=== PATIENT | female | born 1935 | race Hispanic/Latino ===

== ENCOUNTER 2017-11-11 16:20 | Emergency (ER) | payer MEDICARE, OTHER ==
[~2017-11-11] VITALS: Ht 149.9 cm; Wt 62.6 kg
[~2017-11-11 16:20] MED LIST: ACTONEL5 MG PO; ALENDRONATE SOD70 MG PO; AMLODIPINE BESYL5 MG PO; ASPIR 8181 MG PO; ASPIRIN EC81 MG PO; BACLOFEN10 MG PO; BACTRIM DS TAB1 EACH PO; CALCIUM + VITA1 EACH PO; CIMETIDINE400 MG PO; CRESTOR10 MG PO; GLIMEPIRIDE4 MG PO; HYDROCHLOROTHIA25 MG PO; LORATADINE10 MG PO; LOSARTAN POTAS100 MG PO; METFORMIN HCL500 MG PO; METFORMIN PO; METOCLOPRAMIDE10 MG PO; NORVASC10 MG PO; OMEPRAZOLE20 M1 PO; OMEPRAZOLE40 MG PO; TOVIAZ8 MG PO; TRANDATE100 MG PO; TYLENOL # 31 EA PO; ULTRAM 50MG50 MG PO; VITAMIN C500 MG PO
== END 2017-11-11 16:49 | disposition left against medical advice (07) ==
LOC: ER 16:20
DX: S60.511A Abrasion of right hand, initial encounter (principal); S50.811A Abrasion of right forearm, initial encounter; W55.03XA Scratched by cat, initial encounter

== ENCOUNTER 2020-04-22 09:35 | Inpatient (IN) | payer MEDICARE, OTHER ==
[~2020-04-22] VITALS: Ht 149.9 cm; Wt 62.6 kg
--- NOTE | 2020-04-22 09:48 | Emergency Department Note ---
History of Present Illnes History of Present Illness History of Present Illness This is a 85 year old female 4 day h/o of intractable n/v with redness to L leg. Seen by Dr Link's office x 2 and given IM shot of abx. Historian: Patient Arrival Mode: Car History limited by: language barrier Onset (how long ago): week(s) (2) Location: L LE Radiation: Reports extremity Severity: moderate Onset quality: gradual Duration (how long): week(s) (2) Timing of current episode: constant Progression: worsening Chronicity: new Context: Reports recent illness Exacerbating factors: movement Associated symptoms: Reports nausea/vomiting, Reports weakness; Denies fever/chills Treatments prior to arrival: none Previous service: re-evaluation Past Medical/Family History Physician Review I have reviewed the patient's past medical and family history. Any updates have been documented here. Past Medical History Recent Fever: No Clinical Suspicion of Infectio: Yes New/Unexplained Change in Ment: No Past Medical History: Diabetes Other Medical History: acid reflux, arthritis, high cholesterol LYMPHOM LEFT BREAST CA HIATAL HERNIA Other Surgery: hernia LEFT shoulder RIGHT HIP LEFT HIP Social History Smoking Cessation: Never Smoker Alcohol Use: None Any Illegal Drug Use: No Other Last Tetanus: unknown Review of Systems Review of Systems Constitutional: Reports fever EENTM: Reports no symptoms Cardiovascular: Reports no symptoms Respiratory: Reports no symptoms Gastrointestinal: Reports nausea, Reports vomiting Genitourinary: Reports no symptoms Musculoskeletal: Reports no symptoms Integumentary: Reports rash Neurological: Reports no symptoms Psychological: Reports no symptoms Endocrine: Reports no symptoms Hematological/Lymphatic: Reports no symptoms Physical Exam Related Data Allergies: Coded Allergies: Insulins (Verified Allergy, Unknown, 04/22/20) none per pt and family latex (Verified Allergy, Unknown, 04/22/20) losartan (Verified Allergy, Unknown, 04/22/20) simvastatin (Verified Allergy, Unknown, 04/22/20) Uncoded Allergies: NATURAL RUBBER (Allergy, Mild, RASH, 01/13/13) Triage Vital Signs Vital Signs Date Time Temp Pulse Resp B/P (MAP) Pulse Ox O2 Delivery O2 Flow Rate FiO2 04/22/20 09:55 99.0 88 16 152/68 99 04/22/20 11:35 Room Air Vital signs reviewed: Yes Physical Exam CONSTITUTIONAL Constitutional: Present well-developed, Present well-nourished HENT HENT: Present normocephalic, Present atraumatic, Present oropharynx clear/moist, Present nose normal HENT L/R: Present left ext ear normal, Present right ext ear normal EYES Eyes: Reports PERRL, Reports conjunctivae normal NECK Neck: Present ROM normal PULMONARY Pulmonary: Present effort normal, Present breath sounds normal CARDIOVASCULAR Cardiovascular: Present regular rhythm, Present heart sounds normal, Present capillary refill normal, Present normal rate GASTROINTESTINAL Abdominal: Present soft, Present nontender, Present bowel sounds normal GENITOURINARY Genitourinary: Present exam deferred SKIN Skin: Present rash (L LE) MUSCULOSKELETAL Musculoskeletal: Present ROM normal NEUROLOGICAL Neurological: Present alert, Present oriented x 3, Present no gross motor or sensory deficits PSYCHOLOGICAL Psychological: Present mood/affect normal, Present judgement normal Results Laboratory Lab results reviewed: Yes Laboratory comments Laboratory Tests Test 04/22/20 11:15 White Blood Count 11.09 x10e3/uL (4.8-10.8) Red Blood Count 3.72 x10e6/uL (3.6-5.1) Hemoglobin 10.6 g/dL (12.0-16.0) Hematocrit 30.5 % (34.2-44.1) Mean Corpuscular Volume 82.0 fL (81-99) Mean Corpuscular Hemoglobin 28.5 pg (28-32) Mean Corpuscular Hemoglobin Concent 34.8 g/dL (31-35) Red Cell Distribution Width 12.6 % (11.7-14.4) Platelet Count 140 x10e3/uL (140-360) Neutrophils (%) (Auto) 81.6 % (38.7-80.0) Lymphocytes (%) (Auto) 9.3 % (18.0-39.1) Monocytes (%) (Auto) 8.3 % (4.4-11.3) Eosinophils (%) (Auto) 0.1 % (0.0-6.0) Basophils (%) (Auto) 0.1 % (0.0-1.0) Neutrophils # (Auto) 9.1 (2.1-6.9) Lymphocytes # (Auto) 1.0 (1.0-3.2) Monocytes # (Auto) 0.9 (0.2-0.8) Eosinophils # (Auto) 0.0 (0.0-0.4) Basophils # (Auto) 0.0 (0.0-0.1) Absolute Immature Granulocyte (auto 0.07 x10e3/uL (0-0.1) Sodium Level 113 mmol/L (136-145) Potassium Level 4.5 mmol/L (3.5-5.1) Chloride Level 81 mmol/L (98-107) Carbon Dioxide Level 21 mmol/L (22-29) Anion Gap 15.5 mmol/L (8-16) Blood Urea Nitrogen 18 mg/dL (7-26) Creatinine 0.93 mg/dL (0.57-1.11) Estimat Glomerular Filtration Rate 57 ML/MIN (60-) BUN/Creatinine Ratio 19 (6-25) Glucose Level 186 mg/dL (74-118) Calcium Level 8.8 mg/dL (8.4-10.2) Total Bilirubin 0.6 mg/dL (0.2-1.2) Aspartate Amino Transf (AST/SGOT) 35 IU/L (5-34) Alanine Aminotransferase (ALT/SGPT) 20 IU/L (0-55) Alkaline Phosphatase 64 IU/L (40-150) Creatine Kinase 331 IU/L (29-168) Creatine Kinase MB 6.50 ng/mL (0-5.0) Troponin I 0.001 ng/mL (0-0.300) Total Protein 6.5 g/dL (6.5-8.1) Albumin 3.5 g/dL (3.5-5.0) Globulin 3.0 g/dL (2.3-3.5) Albumin/Globulin Ratio 1.2 (0.8-2.0) Imaging Imaging results reviewed: Yes Impressions Venous Duplex L LE : neg Procedures 12 Lead ECG Interpretation ECG Interpretation : ECG: ECG 1 Ground Wood Supervisor: Interpreted by ED physician Date: Apr 22, 2020 Time: 11:37 Prior ECG tracings: reviewed Rhythm: sinus rhythm Rate: normal BPM: 88 QRS axis: normal ST segments normal: Yes T waves normal: Yes Clinical Impression: normal ECG Assessment & Plan Medical Decision Making MDM Diff Dx : DVT, Cellulitis, diabetic ulcer, COVID-19 infection, osteomyelitis. Plan to admit to the service of Dr Jim Rios Assessment & Plan Final Impression: (1) Cellulitis of left leg (2) Intractable nausea and vomiting (3) Hyponatremia Depart Disposition: ADMITTED Home Meds Reported Medications Donepezil Hcl (ARICEPT) 5 Mg Tablet, 5 MG PO DAILY, #30 TAB 04/22/20 Glimepiride (GLIMEPIRIDE) 2 Mg Tablet, 1 MG PO DAILY, TAB 04/22/20 Rosuvastatin Calcium (CRESTOR) 10 Mg Tab, 10 MG PO DAILY THERAPEUTICALLY SUBSTITUTED WITH SIMVASTATIN 40MG 04/22/20 Baclofen (BACLOFEN) 10 Mg Tablet, 10 MG PO DAILY, TAB 04/22/20 Losartan Potassium (LOSARTAN POTASSIUM) 100 Mg Tablet, 100 MG PO DAILY, TAB 04/22/20 Loratadine (LORATADINE) 10 Mg Tablet, 10 MG PO DAILY, #30 TAB 04/22/20 Omeprazole (OMEPRAZOLE) 40 Mg Capsule.dr, 40 MG PO BID 04/22/20 Alendronate Sodium (ALENDRONATE SODIUM) 70 Mg Tablet, 70 MG PO UD once per week 04/22/20 Magnesium Chloride (SLOW-MAG) 64 Mg Tabsr, 64 MG PO DAILY, #30 TAB THERAPEUTICALLY SUBSTITUTED WITH MAG-OX 400MG 04/22/20 Aspirin (ASPIRIN) 81 Mg Tab.chew, 2 TAB PO HS 04/22/20 Fesoterodine Fumarate (TOVIAZ) 8 Mg Tab.er.24h, 1 TAB PO HS 04/22/20 Amlodipine Besylate (AMLODIPINE BESYLATE) 5 Mg Tablet, 5 MG PO DAILY, #30 TAB 04/22/20 Metoclopramide Hcl (METOCLOPRAMIDE HCL) 5 Mg/5 Ml Solution, 10 MG PO ACS, ML 04/22/20 Metformin Hcl (METFORMIN HCL) 500 Mg Tablet, 500 MG PO DAILY, #60 TAB 04/22/20 Discontinued Reported Medications Fesoterodine Fumarate (TOVIAZ) 8 Mg Tab.er.24h, 8 MG PO DAILY 05/15/16 Metformin Hcl (METFORMIN HCL) 500 Mg Tablet, 500 MG PO BID, #60 TAB 05/15/16 Aspirin (ASPIR 81) 81 Mg Tablet.dr, 81 MG PO DAILY 05/15/16 Amlodipine Besylate (AMLODIPINE BESYLATE) 5 Mg Tablet, 5 MG PO DAILY, #30 TAB 05/15/16 Omeprazole (OMEPRAZOLE) 40 Mg Capsule.dr, 20 MG PO DAILY 05/15/16 Baclofen (BACLOFEN) 10 Mg Tablet, 10 MG PO DAILY, #90 TAB 06/12/14 Metoclopramide Hcl (METOCLOPRAMIDE HCL) 10 Mg Tablet, 10 MG PO BID, TAB 06/04/14 Calcium Carbonate/Vitamin D3 (CALCIUM + VITAMIN D TABLET) 1 Each Tablet, 1200 MG PO DAILY 01/13/13 Ascorbic Acid (VITAMIN C) 500 Mg Capsule.er, 500 MG PO DAILY 01/13/13 Rosuvastatin Calcium (CRESTOR) 10 Mg Tab, 10 MG PO DAILY 01/13/13 Losartan Potassium (LOSARTAN POTASSIUM) 100 Mg Tablet, 100 MG PO DAILY 01/13/13 Loratadine (LORATADINE) 10 Mg Tablet, 10 MG PO DAILY 01/13/13 PATIENCE TERRELL DO Apr 22, 2020 09:48
[2020-04-22] MEDS ORDERED: VANCOMYCIN 500MG/NS 0.9% 100ML 100 ML IV STA (09:50)
--- OUTSIDE RECORDS SUMMARY | 2020-04-22 10:13 | XMS REPORT | Continuity of Care Document ---
Author Author [facility] t Organization [facility] Address [address] [place] [address] Phone Unavailable Care Team Providers Care Principal Scientist Name Role Phone JOSEPH ARAUJO, Momo DENNIS PCP Payers Payer Name Policy Type Policy Number Effective Date Expiration Date Finding Something 3 [id number] 2015 00:00 :00 [facility] Medicare A & B [id number] 2012 00:00:00 [facility] [id number] [facility] Problems This patient has no known problems. Allergies, Adverse Reactions, Alerts Allergy Name Allergy Type Status Severity Reaction(s) Onset Date Inacti ve Date Treating Clinician Comments Source Simvastatin Allergy to Substance Active 2014-06-09 00:00:00 [facility] Losartan Allergy to Substance Active 2014-06-09 00:00:00 [facility] Alendronate sodium Allergy to Substance Active 2014-06-09 0 0:00:00 [facility] Latex Allergy to Substance Active 2014-06-09 00:00:00 [facility] NATURAL RUBBER Allergy to Substance Active Mild RASH 2013-01-13 00:00 :00 [facility] Medications Ordered Medication Name Filled Medication Name Start Date Stop Da te Current Medication? Ordering Clinician Indication Dosage Frequency Signature (SIG) Comments Components Source Amlodipine Besylate 5 Mg Tablet Amlodipine Besylate 5 Mg Tablet Yes 5 Daily [facility] Ascorbic Acid (Vitamin C) 500 Mg Capsule.er Ascorbic A sly (Vitamin C) 500 Mg Capsule.er Yes 500 Daily [facility] Aspirin (Aspir 81) 81 Mg Tablet. Aspirin (Aspir 81) 81 Mg Tablet. Yes 81 Daily [facility] Baclofen 10 Mg Tablet Baclofen 10 Mg Tablet Yes 10 Daily [facility] Calcium Carbonate/Vitamin D3 (Calcium + Vitamin D Tabl et) 1 Each Tablet Calcium Carbonate/Vitamin D3 (Calcium + Vitamin D Tablet) 1 Each Tablet Yes 1200 Daily [facility] Fesoterodine Fumarate (Toviaz) 8 Mg Tab.er.24h Fesoter odine Fumarate (Toviaz) 8 Mg Tab.er.24h Yes [address] [facility] Loratadine 10 Mg Tablet Loratadine 10 Mg Tablet Yes 10 Daily [facility] Losartan Potassium 100 Mg Tablet Losartan Potassium 100 Mg Tablet Yes 100 Daily [facility] Metformin Hcl 500 Mg Tablet Metformin Hcl 500 Mg Tablet Yes 500 Twice A Day [facility] Metoclopramide Hcl 10 Mg Tablet Metoclopramide Hcl 10 Mg Tablet Yes 10 Twice A Day [facility] Omeprazole 40 Mg Capsule. Omeprazole 40 Mg Capsule. Yes 20 Daily [facility] Rosuvastatin Calcium (Crestor) 10 Mg Tab Rosuvastatin Calcium (Crestor) 10 Mg Tab Yes 10 Daily [facility] Alendronate Sodium 70 Mg Tablet, 70 Mg Oral Alendronat e Sodium 70 Mg Tablet, 70 Mg Oral 2016-05-15 00:00:00 No 70 Sunday [facility] Cimetidine 400 Mg Tablet, 400 Mg Oral Cimetidine 400 Mg Tablet, 400 Mg Oral 2016-05-15 00:00:00 No 400 Twice A Day [facility] Fesoterodine Fumarate (Toviaz) 8 Mg Tab.er.24h, 8 Mg O ral Fesoterodine Fumarate (Toviaz) 8 Mg Tab.er.24h, 8 Mg Oral 2016-05-15 00:00:00 No 8 Bedtime [facility] Glimepiride 4 Mg Tablet, 4 Mg Oral Glimepiride 4 Mg Tablet, 4 Mg Oral 2016-05-15 00:00:00 No 4 Daily [facility] Metformin , 500 Mg Oral Metformin , 500 Mg Oral 2016-05-15 00:00 :00 No 500 Twice A Day [facility] Sulfamethoxazole/Trimethoprim (Bactrim Ds Tablet) 1 Ea ch Tablet, 1 Tab Oral Sulfamethoxazole/Trimethoprim (Bactrim Ds Tablet) 1 Each Tablet, 1 Tab Oral 2016-05-15 00:00:00 No 1 Twice A Day [facility] Aspirin (Aspirin Ec) 81 Mg Tablet., 81 Mg Oral Aspir in (Aspirin Ec) 81 Mg Tablet.dr, 81 Mg Oral 2013-08-08 00:00:00 No 81 Da margaret [facility] Hydrochlorothiazide 25 Mg Tablet, 25 Mg Oral Hydrochlo rothiazide 25 Mg Tablet, 25 Mg Oral 2013-08-08 00:00:00 No 25 Daily [facility] Risedronate Sodium (Actonel) 5 Mg Tablet, 5 Mg Oral Ri sedronate Sodium (Actonel) 5 Mg Tablet, 5 Mg Oral 2013-08-08 00:00:00 No 5 D aily [facility] Tramadol Hcl (Ultram 50MG*) 50 Mg Tab, 50 Mg Oral Tram adol Hcl (Ultram 50MG*) 50 Mg Tab, 50 Mg Oral 2013-08-08 00:00:00 No 50 As Ne eded [facility] Procedures This patient has no known procedures. Encounters Start Date/Time End Date/Time Encounter Type Admission Type [facility] Care Department Encounter ID Source 2017-11-11 16:20:00 2017-11-11 16:49:00 Departed Emergency Room [facility] [id number] [facility] Results This patient has no known results.
[2020-04-22] MEDS ORDERED: ONDANSETRON HCL INJ 2MG/ML 2ML 2 MG/ML VIAL IV STA (10:30)
[2020-04-22 11:30] LABS: BASOPHILS % 0.1 % (0.0-1.0); EOSINOPHILS % 0.1 % (0.0-6.0); HEMATOCRIT 30.5 % (34.2-44.1); HEMOGLOBIN 10.6 g/dL (12.0-16.0); LYMPHOCYTES % 9.3 % (18.0-39.1); MEAN CORPUSCULAR HEMOGLOBIN 28.5 pg (28-32); MEAN CORPUSCULAR HGB CONC 34.8 g/dL (31-35); MONOCYTES # (AUTO) 0.9 (0.2-0.8); MONOCYTES % 8.3 % (4.4-11.3); NEUTROPHILS # (AUTO) 9.1 (2.1-6.9); NEUTROPHILS % 81.6 % (38.7-80.0); PLATELET COUNT 140 x10e3/uL (140-360); RED BLOOD COUNT 3.72 x10e6/uL (3.6-5.1); RED CELL DISTRIBUTION WIDTH 12.6 % (11.7-14.4)
[2020-04-22 11:47] LABS: ALBUMIN 3.5 g/dL (3.5-5.0); ALBUMIN/GLOBULIN RATIO 1.2 (0.8-2.0); ANION GAP 15.5 mmol/L (8-16); CALCIUM 8.8 mg/dL (8.4-10.2); CREATININE, SERUM 0.93 mg/dL (0.57-1.11); POTASSIUM 4.5 mmol/L (3.5-5.1)
[2020-04-22 11:53] LABS: CREATINE KINASE MB 6.5 ng/mL (0-5.0)
[2020-04-22] MEDS ORDERED: SODIUM CHLORIDE 0.9% 1000ML 1,000 ML IV SCH (12:00)
--- OUTSIDE RECORDS SUMMARY | 2020-04-22 12:20 | XMS REPORT | Continuity of Care Document ---
Author Author [facility] t Organization [facility] Address [address] [place] [address] Phone Unavailable Care Team Providers Care Pricer Bagger Name Role Phone JOSEPH ARAUJO, Momo DENNIS PCP Payers Payer Name Policy Type Policy Number Effective Date Expiration Date [employer] [id number] 2015 00:00 :00 [facility] Medicare A & B [id number] 2012 00:00:00 [facility] TM [id number] [facility] Problems This patient has no known problems. Allergies, Adverse Reactions, Alerts Allergy Name Allergy Type Status Severity Reaction(s) Onset Date Inacti ve Date Treating Clinician Comments Source Simvastatin Allergy to Substance Active 2014-06-09 00:00:00 [facility] Losartan Allergy to Substance Active 2014-06-09 00:00:00 [facility] Alendronate sodium Allergy to Substance Active 2014-06-09 0 0:00:00 [facility] Latex Allergy to Substance Active 2014-06-09 00:00:00 [facility] NATURAL RUBBER Allergy to Substance Active Mild RASH 2013-01-13 00:00 :00 [facility] Medications Ordered Medication Name Filled Medication Name Start Date Stop Da te Current Medication? Ordering Clinician Indication Dosage Frequency Signature (SIG) Comments Components Source Amlodipine Besylate 5 Mg Tablet Amlodipine Besylate 5 Mg Tablet Yes 5 Daily [facility] Ascorbic Acid (Vitamin C) 500 Mg Capsule.er Ascorbic A sly (Vitamin C) 500 Mg Capsule.er Yes 500 Daily [facility] Aspirin (Aspir 81) 81 Mg Tablet. Aspirin (Aspir 81) 81 Mg Tablet. Yes 81 Daily [facility] Baclofen 10 Mg Tablet Baclofen 10 Mg Tablet Yes 10 Daily [facility] Calcium Carbonate/Vitamin D3 (Calcium + Vitamin D Tabl et) 1 Each Tablet Calcium Carbonate/Vitamin D3 (Calcium + Vitamin D Tablet) 1 Each Tablet Yes 1200 Daily [facility] Fesoterodine Fumarate (Toviaz) 8 Mg Tab.er.24h Fesoter odine Fumarate (Toviaz) 8 Mg Tab.er.24h Yes 8 Daily [facility] Loratadine 10 Mg Tablet Loratadine 10 Mg Tablet Yes 10 Daily [facility] Losartan Potassium 100 Mg Tablet Losartan Potassium 100 Mg Tablet Yes 100 Daily [facility] Metformin Hcl 500 Mg Tablet Metformin Hcl 500 Mg Tablet Yes 500 Twice A Day [facility] Metoclopramide Hcl 10 Mg Tablet Metoclopramide Hcl 10 Mg Tablet Yes 10 Twice A Day [facility] Omeprazole 40 Mg Capsule. Omeprazole 40 Mg Capsule. Yes 20 Daily [facility] Rosuvastatin Calcium (Crestor) 10 Mg Tab Rosuvastatin Calcium (Crestor) 10 Mg Tab Yes 10 Daily [facility] Alendronate Sodium 70 Mg Tablet, 70 Mg Oral Alendronat e Sodium 70 Mg Tablet, 70 Mg Oral 2016-05-15 00:00:00 No 70 Sunday [facility] Cimetidine 400 Mg Tablet, 400 Mg Oral Cimetidine 400 Mg Tablet, 400 Mg Oral 2016-05-15 00:00:00 No 400 Twice A Day [facility] Fesoterodine Fumarate (Toviaz) 8 Mg Tab.er.24h, 8 Mg O ral Fesoterodine Fumarate (Toviaz) 8 Mg Tab.er.24h, 8 Mg Oral 2016-05-15 00:00:00 No 8 Bedtime [facility] Glimepiride 4 Mg Tablet, 4 Mg Oral Glimepiride 4 Mg Tablet, 4 Mg Oral 2016-05-15 00:00:00 No 4 Daily [facility] Metformin , 500 Mg Oral Metformin , 500 Mg Oral 2016-05-15 00:00 :00 No 500 Twice A Day [facility] Sulfamethoxazole/Trimethoprim (Bactrim Ds Tablet) 1 Ea ch Tablet, 1 Tab Oral Sulfamethoxazole/Trimethoprim (Bactrim Ds Tablet) 1 Each Tablet, 1 Tab Oral 2016-05-15 00:00:00 No 1 Twice A Day [facility] Aspirin (Aspirin Ec) 81 Mg Tablet., 81 Mg Oral Aspir in (Aspirin Ec) 81 Mg Tablet.dr, 81 Mg Oral 2013-08-08 00:00:00 No 81 Da margaret [facility] Hydrochlorothiazide 25 Mg Tablet, 25 Mg Oral Hydrochlo rothiazide 25 Mg Tablet, 25 Mg Oral 2013-08-08 00:00:00 No 25 Daily [facility] Risedronate Sodium (Actonel) 5 Mg Tablet, 5 Mg Oral Ri sedronate Sodium (Actonel) 5 Mg Tablet, 5 Mg Oral 2013-08-08 00:00:00 No 5 D aily [facility] Tramadol Hcl (Ultram 50MG*) 50 Mg Tab, 50 Mg Oral Tram adol Hcl (Ultram 50MG*) 50 Mg Tab, 50 Mg Oral 2013-08-08 00:00:00 No 50 As Ne eded [facility] Procedures This patient has no known procedures. Encounters Start Date/Time End Date/Time Encounter Type Admission Type [facility] Care Department Encounter ID Source 2017-11-11 16:20:00 2017-11-11 16:49:[address] [facility] [id number] [facility] Results This patient has no known results.
[2020-04-22] MEDS ORDERED: FUROSEMIDE INJ 10 MG/ML 4 ML VIAL IV ONE (15:45)
--- NOTE | 2020-04-22 16:40 | NUR ---
pt arrived to room 206 from ER via stretcher. pt's wheelchair at bedside. pt awake, alert, no complaints at this time.
[2020-04-22 16:45] VITALS: BP 156/70
--- NOTE | 2020-04-22 17:37 | NUR ---
informed by Lab pt's sodium is 116; informed Dr. Patton. no new orders received.
[2020-04-22 17:59] LABS: THYROID STIMULATING HORMONE 1.456 uIU/mL (0.350-4.940)
[2020-04-22 18:30] VITALS: BP 156/70
--- NOTE | 2020-04-22 19:00 | NUR ---
RECEIVED PATIENT IN BEDSIDE SHIFT REPORT. PATIENT RESTING IN BED AT THIS TIME. NO PAIN REPORTED OR NOTED. NO S&S OF DISTRESS NOTED. BED LOCKED IN LOWEST POSITION, SIDE RAILS UPX2, CALL LIGHT IN REACH. BED ALARM ACTIVE.
--- NOTE | 2020-04-22 19:15 | NUR ---
change of shift report given to PM nurse. Initial assessment and history completed along with medication reconciliation. passed along completion of admission to [facility].
--- NOTE | 2020-04-22 19:24 | Diagnostic Imaging Report ---
EXAMINATION: CHEST SINGLE (PORTABLE) COMPARISON: Report of chest x-ray performed 08/09/2013. Images are not available for comparison. INDICATION: ^SOB DISCUSSION: Frontal view of the chest obtained at 1854 hours. HEART AND MEDIASTINUM: The heart is top normal in size. A prominent pericardial fat pad may be present. There are calcifications of the aortic arch. LINES: None. LUNGS/PLEURA: The lungs are well inflated. Mild blunting of the left lateral costophrenic angle may be acute or chronic. Pulmonary vascular markings are normal. No interstitial edema. BONES AND SOFT TISSUES: Left shoulder prosthesis is in appropriate position without associated fracture. Healed fracture deformity of the proximal right humerus. There are healed right upper rib fractures. Calcification in the right breast measures 1.1 cm. IMPRESSION: Blunting of the left lateral costophrenic angle may be due to chronic pleural thickening or pleural effusion. Mild cardiomegaly versus prominent pericardial fat pad. No evidence of CHF or vascular congestion. Signed by: Dr. Erin Bynum MD on 04/22/2020 7:20 PM
[2020-04-22] MEDS: SODIUM CHLORIDE 1 GM TAB PO SCH (19:38)
[2020-04-22 20:00] VITALS: BP 152/80
--- NOTE | 2020-04-22 20:05 | Consultation ---
DATE OF CONSULTATION: Initial Nephrology Consultation Report REASON FOR CONSULTATION: Hyponatremia. HISTORY OF PRESENT ILLNESS: Ms. Benavidez is an 85-year-old female. She is really not able to give much of a history, so the history is obtained from the patient's medical records, nursing staff, and caregivers. The patient actually came in because of some less like cellulitis of the right leg. She was given some antibiotics. She also did have some nausea and vomiting, but then on laboratory testing, it was discovered that she was 113, she was kept in. PAST MEDICAL HISTORY: 1. The patient has some history of probable lymphoma. 2. Left breast cancer. PAST SURGICAL HISTORY: Some hip surgery. REVIEW OF SYSTEMS: As per HPI. PHYSICAL EXAMINATION: VITAL SIGNS: A complete set of vitals is not available to me at this time. GENERAL: The patient is very lethargic. HEENT: No increased JVD. CARDIOVASCULAR: Regular rhythm. LUNGS: Decreased breath sounds. ABDOMEN: Decreased bowel sounds. EXTREMITIES: The patient has some cellulitis of the right leg. LABORATORY RESULTS: Sodium 113, potassium 4.5, chloride 81, bicarbonate 21, BUN and creatinine 18 and 0.9 respectively. Hemoglobin 10. IMPRESSION/PLAN: 1. Hyponatremia. 2. Cellulitis. 3. Intractable nausea and vomiting. 4. Hyponatremia. 5. Rule out syndrome of inappropriate antidiuretic hormone. 6. Volume depletion. PLAN: The patient does look like she could be little bit dehydrated. Normal saline is running. We will continue this. This lab was drawn at 11 o'clock and we will repeat another one at 5 p.m. today. In the meantime, I will order serum and urine osmolality, TSH. I will give her one dose of Lasix to promote a hypertonic diuresis along with the normal saline. Once the results of the serum and urine osmolalities are available, it will be evident whether she needs water restriction to correct her hyponatremia. Ather MD NICO William/JORGITO /[id number]
[2020-04-22 20:10] LABS: BILIRUBIN,URINE NEGATIVE (NEGATIVE); CLARITY,URINE SL CLOUDY (CLEAR); COLOR,URINE YELLOW (YELLOW); KETONES,URINE NEGATIVE (NEGATIVE); LEUKOCYTE ESTERASE ,URINE NEGATIVE (NEGATIVE); NITRITE,URINE NEGATIVE (NEGATIVE); PROTEIN,URINE DIPSTICK NEGATIVE (NEGATIVE); URINE UROBILINOGEN 0.2 mg/dL (0.2 - 1)
[2020-04-22] MEDS ORDERED: METFORMIN HCL500 MG PO (20:24)
[2020-04-22] MEDS ORDERED: METOCLOPRAM5 MG/5 ML PO (20:24)
[2020-04-22] MEDS ORDERED: LORATADINE10 MG PO (20:24)
[2020-04-22] MEDS ORDERED: OMEPRAZOLE40 MG PO (20:24)
[2020-04-22] MEDS ORDERED: ARICEPT5 MG PO (20:24)
[2020-04-22] MEDS ORDERED: ASPIRIN81 MG PO (20:24)
[2020-04-22] MEDS ORDERED: ALENDRONATE SOD70 MG PO (20:24)
[2020-04-22] MEDS ORDERED: SLOW-MAG64 MG PO (20:24)
[2020-04-22] MEDS ORDERED: GLIMEPIRIDE2 MG PO (20:24)
[2020-04-22] MEDS ORDERED: CRESTOR10 MG PO (20:24)
[2020-04-22] MEDS ORDERED: LOSARTAN POTAS100 MG PO (20:24)
[2020-04-22] MEDS ORDERED: BACLOFEN10 MG PO (20:24)
[2020-04-22] MEDS ORDERED: AMLODIPINE BESYL5 MG PO (20:24)
[2020-04-22] MEDS ORDERED: TOVIAZ8 MG PO (20:24)
[2020-04-23] VITALS (8 sets, daily range): BP systolic 106–156; BP diastolic 59–85
[2020-04-23] MEDS ORDERED: ACETAMINOPHEN 325 MG TAB PO PRN (02:00)
[2020-04-23] MEDS ORDERED: HYDRALAZINE HCL 20 MG/ML VIAL IV PRN (02:00)
[2020-04-23] MEDS ORDERED: DEXTROSE 50% SYRINGE 50 ML IV PRN (02:15)
--- NOTE | 2020-04-23 04:12 | History and Physical ---
PRIMARY CARE PHYSICIAN: Dr. Negrito Link. The patient's hospital physician, Dr. Marin Rios. This is coverage for Dr. Rios. CHIEF COMPLAINT: Intractable nausea and vomiting. HISTORY OF PRESENT ILLNESS: Ms. Benavidez is a pleasant 85-year-old female with intractable nausea and vomiting. The patient also had some redness to right leg. The patient was recently seen at her PCPs office a couple times. The patient has been started on some antibiotics and was given antibiotic shot. The patient had blood work done and sodium was found to be 116. It was decided to admit the patient. Beside sodium 113, the serum bicarbonate was 21, creatinine was 0.93. CK 331, although troponin was negligible. Urinalysis with 6-10 rbc's, but no significant wbc. Coronavirus testing is still pending. Chest x-ray with reported blunting of left lateral costophrenic angle may be due to partial obscuration by pleural effusion or chronic thickening. Mild cardiomegaly without evidence of CHF or vascular congestion. Healed rib fractures. PAST MEDICAL HISTORY: Hypertension, hyperlipidemia, diabetes, osteoporosis, left shoulder fracture requiring surgery, right hip fracture requiring surgery, umbilical hernia surgery, history of probable lymphoma, left breast cancer, GERD, and hiatal hernia. MEDICATIONS: Medication list reviewed per the chart record. ALLERGIES: INSULIN, NATURAL RUBBER, ALENDRONATE, LATEX, LOSARTAN, AND SIMVASTATIN. SOCIAL HISTORY: The patient smoked from age 23 to 28, one pack per week. No alcohol. No drugs. She lives with her daughter. She says, although, she is a limited historian and she says she has two children. She says she is . FAMILY HISTORY: Noncontributory. REVIEW OF SYSTEMS: Cannot get reliably, as she is altered. PHYSICAL EXAMINATION: VITAL SIGNS: Afebrile, vital signs noted and reviewed per the chart record. 152/68 blood pressure, 88 heart rate. 96% oxygen saturation room air. GENERAL: In no acute distress. Alert and oriented x2. The patient states the president is Monty Lechuga and it is 1923 or it could be 1990. HEENT: Normocephalic and atraumatic. NECK: Supple. Throat midline. LUNGS: Bilateral air entry, limited, but clear. CARDIOVASCULAR: S1, S2. No murmurs, rubs, or gallops. ABDOMEN: Soft, nontender. EXTREMITIES: No clubbing, no cyanosis. There is 2 to 3+ edema of the legs. Mild redness on the leg. NEUROLOGIC: She moves all four extremities. LABORATORY DATA: 11 white count, 10.6 hemoglobin, 30.5 hematocrit, 140 platelets. Coags were normal in 2013, not rechecked yet. Chemistry noted. Coronavirus testing is pending. IMPRESSION AND PLAN: 1. Critical hyponatremia, sodium 113. The etiology under investigation, could be syndrome of inappropriate antidiuretic hormone secretion combine with dehydration, mild due to excessive nausea and emesis. 2. Mild anemia. 3. Mild leukocytosis. 4. Partially treated cellulitis. 5. Leg edema, not otherwise specified. 6. Encephalopathy without definite dementia per records. Possible toxic metabolic encephalopathy. 7. Possible sepsis. 8. History of lymphoma. 9. History of left breast cancer. 10. Gastroesophageal reflux disease. 11. Hyperlipidemia. 12. Hypertension. 13. Diabetes. 14. Osteoporosis and fractures in the past. Admit. Give initial antibiotics to rule out sepsis. The patient likely has right leg infection as diagnosis outpatient, so we will give some antibiotics. Follow up clinical exams. Follow up edema. We will consult Dr. Cunningham and Dr. Rivero for Hematology Oncology overview. Given initial vitamins. We will follow up closely. Followup serial sodium levels and get Nephrology consult, Dr. Patton, which is very much appreciated. Thank you very much, Dr. Link. Please call for any questions. MD DEVIKA Thompson/JORGITO /[id number]
[2020-04-23] MEDS: PIPER-TAZ 3.375 GM 50 ML IV SCH ×4 (05:39→22:52)
[2020-04-23 05:56] LABS: BASOPHILS % 0.2 % (0.0-1.0); EOSINOPHILS # (AUTO) 0.1 (0.0-0.4); HEMATOCRIT 30.8 % (34.2-44.1); HEMOGLOBIN 10.6 g/dL (12.0-16.0); LYMPHOCYTES # (AUTO) 1.3 (1.0-3.2); LYMPHOCYTES % 12.6 % (18.0-39.1); MEAN CORPUSCULAR HEMOGLOBIN 28.6 pg (28-32); MEAN CORPUSCULAR HGB CONC 34.4 g/dL (31-35); MONOCYTES # (AUTO) 1.2 (0.2-0.8); MONOCYTES % 11.7 % (4.4-11.3); NEUTROPHILS # (AUTO) 7.5 (2.1-6.9); NEUTROPHILS % 73.8 % (38.7-80.0); PLATELET COUNT 125 x10e3/uL (140-360); RED BLOOD COUNT 3.71 x10e6/uL (3.6-5.1); RED CELL DISTRIBUTION WIDTH 12.7 % (11.7-14.4)
[2020-04-23 06:24] LABS: ALANINE AMINOTRANSFERASE 20 IU/L (0-55); ALBUMIN 3.2 g/dL (3.5-5.0); ALBUMIN/GLOBULIN RATIO 1.2 (0.8-2.0); ALKALINE PHOSPHATASE 56 IU/L (40-150); ANION GAP 12.7 mmol/L (8-16); BLOOD UREA NITROGEN 13 mg/dL (7-26); BUN/CREATININE RATIO 16 (6-25); CALCIUM 8.1 mg/dL (8.4-10.2); CARBON DIOXIDE 23 mmol/L (22-29); CHLORIDE 86 mmol/L (98-107); CREATININE, SERUM 0.81 mg/dL (0.57-1.11); EST GLOMERULAR FILTRATION RATE > 60 ML/MIN (60-); GLUCOSE 119 mg/dL (74-118); POTASSIUM 3.7 mmol/L (3.5-5.1)
[2020-04-23 06:26] LABS: SODIUM 118 mmol/L (136-145)
[2020-04-23] MEDS ORDERED: ONDANSETRON HCL INJ 2MG/ML 2ML 2 MG/ML VIAL IV PRN (06:30)
[2020-04-23] MEDS: SLOW MAG 64 MG PO SCH (09:00)
[2020-04-23] MEDS: DONEPEZIL HCL 5 MG TAB PO SCH (09:14)
[2020-04-23] MEDS: ASPIRIN 81 MG CHEW TAB PO SCH (09:15)
[2020-04-23] MEDS: LORATADINE 10 MG TAB PO SCH (09:15)
[2020-04-23] MEDS: AMLODIPINE BESYLATE 5 MG TAB PO SCH (09:15)
[2020-04-23] MEDS: PANTOPRAZOLE SOD 40 MG TABEC PO SCH ×2 (09:15→16:18)
[2020-04-23] MEDS: SODIUM CHLORIDE 1 GM TAB PO SCH ×2 (09:16→16:18)
[2020-04-23] MEDS: METOCLOPRAMIDE HCL 10 MG/2ML VIAL IV SCH ×3 (10:24→22:52)
[2020-04-23] MEDS ORDERED: FUROSEMIDE 20 MG TAB PO SCH (10:30)
[2020-04-23 13:00] LABS: ANION GAP 13.8 mmol/L (8-16); BLOOD UREA NITROGEN 13 mg/dL (7-26); BUN/CREATININE RATIO 15 (6-25); CALCIUM 8.3 mg/dL (8.4-10.2); CARBON DIOXIDE 23 mmol/L (22-29); CHLORIDE 85 mmol/L (98-107); CREATININE, SERUM 0.85 mg/dL (0.57-1.11); EST GLOMERULAR FILTRATION RATE > 60 ML/MIN (60-); GLUCOSE 164 mg/dL (74-118); POTASSIUM 3.8 mmol/L (3.5-5.1)
[2020-04-23 13:03] LABS: SODIUM 118 mmol/L (136-145)
--- NOTE | 2020-04-23 13:30 | NUR ---
INTERNAL MEDICINE PROGRESS NOTE DATE: 04/23/20 SUBJECTIVE: AO X 3 RA fio2 some dizziness no nausea, no emesis today. poor appetite REVIEW OF SYSTEMS: no headaches, no rash PHYSICAL EXAMINATION: VITAL SIGNS: vital signs noted and reviewed per the chart record. GENERAL: NAD, AO x 3 HEENT: Normocephalic, atraumatic. NECK: Supple. Throat midline. LUNGS: Bilateral air entry, limited, but clear. CARDIOVASCULAR: S1, S2. No murmurs, rubs, or gallops. ABDOMEN: Soft, nontender. EXTREMITIES: No clubbing, no cyanosis. 2-3+ edema of the legs. Mild redness on the leg. NEUROLOGIC: She moves all four extremities. LABORATORY DATA: wbc 10, hct 31, plt 125. na 118. k 3.7. bun 13, cr 0.81. IMPRESSION AND PLAN: 1. Critical hyponatremia, sodium 113. Etiology under investigation, SIADH + dehydration. Slowly better. 2. Mild anemia. 3. Mild leukocytosis. 4. Partially treated cellulitis. 5. Leg edema, not otherwise specified. 6. Encephalopathy without definite dementia in records. Possible toxic metabolic encephalopathy. 7. Possible sepsis. 8. History of lymphoma. 9. History of left breast cancer. 10. Gastroesophageal reflux disease. 11. Hyperlipidemia. 12. Hypertension. 13. Diabetes. 14. Osteoporosis and fractures in the past. Initial antibiotics for possible sepsis and cellulitis +/- other Follow up clinical exams. Follow up edema. Consult Dr. Cunningham/Josefa for Hematology Oncology overview given complex underlying conditions Followup serial sodium levels. Appreciate Nephrology bus info consultant Dr. Patton PT/OT festusal Thank you very much, Dr. Link. Please call for any questions.
--- NOTE | 2020-04-23 13:53 | NUR ---
Paged Dr. Ward for the orders to report lab result for 1200 today. Awaiting call back.
[2020-04-23] MEDS: FUROSEMIDE 20 MG TAB PO SCH (16:18)
[2020-04-23] MEDS ORDERED: METOCLOPRAMIDE HCL 10MG/10ML UDC PO SCH (16:30)
--- NOTE | 2020-04-23 19:15 | NUR ---
SBAR REPORT RECEIVED FROM DAYSHIFT AT BEDSIDE, PATIENT SEEN SLEEPING, AROUSABLE WHEN NAME CALLED, JORDANIAN IS PRIMARY LANGUAGE, ABLE TO COMMUNICATE WITH VALET PARKER, PATIENT DENIES PAIN OR NAUSEA AT THIS TIME, SKIN WARM DRY, NO DISTRESS NOTED, CALL LIGHT WITHIN REACH, WILL CONTINUE TO MONITOR
--- NOTE | 2020-04-23 21:00 | NUR ---
NA LEVEL 120 MD COLE NOT CONTACTED PER DAYSHIFT RN ONLY TO BE CONTACTED IF >122, PATIENT ASYMPTOMATIC RESTING COMFORTABLY IN BED, CALL LIGHT WITHIN REACH, CYMRO SPEAKING ONLY
[2020-04-24] VITALS (9 sets, daily range): BP systolic 126–155; BP diastolic 59–72
[2020-04-24] MEDS: PANTOPRAZOLE 40 MG 10ML VIAL IV SCH ×2 (05:15→18:18)
[2020-04-24] MEDS: SODIUM CHLORIDE 0.9% 1000ML 1,000 ML IV SCH ×2 (05:15→17:38)
[2020-04-24] MEDS: METOCLOPRAMIDE HCL 10 MG/2ML VIAL IV SCH ×4 (05:17→23:17)
[2020-04-24] MEDS: PIPER-TAZ 3.375 GM 50 ML IV SCH ×4 (05:20→23:17)
[2020-04-24 06:17] LABS: ANION GAP 14.2 mmol/L (8-16); CALCIUM 8.2 mg/dL (8.4-10.2); CREATININE, SERUM 0.91 mg/dL (0.57-1.11); POTASSIUM 3.2 mmol/L (3.5-5.1)
[2020-04-24 06:45] LABS: AMYLASE 59 U/L (25-125); LIPASE 19 U/L (8-78)
[2020-04-24 06:51] LABS: FERRITIN 85.08 ng/mL (4.63-204.00)
[2020-04-24] MEDS: DONEPEZIL HCL 5 MG TAB PO SCH (09:00)
[2020-04-24] MEDS: FUROSEMIDE 20 MG TAB PO SCH ×2 (09:00→17:38)
[2020-04-24] MEDS: LORATADINE 10 MG TAB PO SCH (09:00)
[2020-04-24] MEDS: SLOW MAG 64 MG PO SCH (09:00)
[2020-04-24] MEDS: AMLODIPINE BESYLATE 5 MG TAB PO SCH (09:00)
[2020-04-24] MEDS: ASPIRIN 81 MG CHEW TAB PO SCH (09:00)
[2020-04-24] MEDS: SODIUM CHLORIDE 1 GM TAB PO SCH ×2 (09:00→17:38)
--- NOTE | 2020-04-24 09:23 | NUR ---
Spoke with Dr. Cehung regarding Sodium and potassium level. Verbal order given to give KCL 40 MEQ one dose.
[2020-04-24] MEDS ORDERED: POTASSIUM CHLORIDE 20MEQ/100ML 200 ML IV ONE ×2 (09:30→13:15)
--- NOTE | 2020-04-24 09:40 | Diagnostic Imaging Report ---
EXAMINATION: CHEST SINGLE (PORTABLE) INDICATION: pleural effusion COMPARISON: Chest radiograph 04-22-2020. FINDINGS: TUBES and LINES: None. LUNGS: Lungs are well inflated. No evidence of lobar pneumonia or pulmonary edema. Minimal patchy bibasilar opacities, likely atelectasis. PLEURA: Persistent mild blunting of the left costophrenic angle. No pneumothorax. HEART AND MEDIASTINUM: The cardiomediastinal silhouette is mildly enlarged. There are atherosclerotic calcifications within the aorta. BONES AND SOFT TISSUES: No acute osseous abnormality. Partially seen left reverse total shoulder arthroplasty. Partially visualized healed fracture deformity of the right proximal humerus. UPPER ABDOMEN: No free air under the diaphragm. IMPRESSION: Blunting of the left lateral costophrenic angle may be due to chronic pleural thickening or small pleural effusion. Mild cardiomegaly without pulmonary edema. Signed by: Dr. Peterson Sultana MD on 04/24/2020 9:37 AM
--- NOTE | 2020-04-24 11:18 | Diagnostic Imaging Report ---
EXAM: Limited abdominal ultrasound INDICATION: Nausea, vomiting. COMPARISON: None. TECHNIQUE: Transverse and longitudinal images of the abdomen was performed. FINDINGS/IMPRESSION Limited ultrasound was performed of the umbilical region in the area of prior hernia repair. In the area of clinical concern, there is a moderate umbilical hernia which measures up to 4.9 cm which contains predominantly fat. On Valsalva maneuver, bowel loops enter the hernia. No dilated bowel loops are visualized. No evidence of surrounding fluid. Recommend clinical correlation for reducibility. If of clinical concern, CT may be performed for further evaluation. Signed by: Dr. Peterson Sultana MD on 04/24/2020 11:15 AM
[2020-04-24] MEDS ORDERED: LIDOCAINE HCL 2% LOCAL INJ 5 ML SDV VIAL INJ ONE (14:36)
[2020-04-24] MEDS ORDERED: PROPOFOL IV EMULSION 10 MG/ML 20 ML VIAL ONE (14:36)
--- NOTE | 2020-04-24 14:40 | NUR ---
Patient is transported for procedure at this time.
--- NOTE | 2020-04-24 18:55 | NUR ---
Patient complaints of itching all over the body. Noted no rashes or redness. Will notify Dr. Varela. Addendum: 04/24/20 at 1944 by Tsering Koo RN Error. Wrong patient.
--- NOTE | 2020-04-24 19:14 | Operative Report ---
DATE OF PROCEDURE: 04/24/2020 SURGEON: Eamon Jones MD PROCEDURE: EGD with biopsies. INDICATIONS FOR PROCEDURE: Upper abdominal pain, nausea and vomiting. MEDICATIONS: The patient was done under MAC, please see anesthesiologist's note. PROCEDURE IN DETAIL: With the patient in left lateral decubitus position, flexible fiberoptic Olympus gastroscope was introduced into the esophagus under direct visualization without any difficulty. There was some patchy erythema noted in distal esophagus. There was a small hiatal hernia noted that was traversed with ease and the scope was advanced into the stomach. There was some patchy areas of erythema and low-grade to moderate edema noted in the antrum and the body and also there were some erosions noted in the antrum. Biopsies were obtained and sent to stain for H pylori. Pylorus was of normal contour and shape, was intubated with ease and the scope was advanced all the way to the second portion of the duodenum. The scope was then withdrawn slowly. Mucosa overlying the proximal second portion and the duodenal bulb appeared to be within normal limits. The scope was then withdrawn back into the stomach and retroflexed. Mucosa overlying the fundus and cardia appeared to be within normal limits. The scope was then straightened out, it was subsequently withdrawn. The patient tolerated the procedure well. IMPRESSION: 1. Distal esophagitis, mild. 2. Small hiatal hernia. 3. Gastritis, erosive, biopsies obtained and sent to stain for Helicobacter pylori. PLAN: Follow up histology. Continue current therapy. Initiate full liquid diet. Eamon Jones MD [facility] /[id number] cc: Marin Rios MD
--- NOTE | 2020-04-24 20:00 | NUR ---
SBAR REPORT RECEIVED FROM RAZA ROQUE, REPORTED TO ME THAT Patient complaints of itching all over the body. Noted no rashes or redness. MD TERRELL PAGED, JUDE PERSON STILL ON FLOOR NOTIFIED MD TERRELL THAT PT IS C/O ITCHING NO RASH, SHE OBTAINED ORDER FOR ATARAX AND CLARITIN, ORDER VERIFIED WITH JUDE PERSON, ENTERED BY THIS NURSE, MEDICATION GIVEN PO TOLERATED WELL NO SWALLOWING ISSUES, CALL LIGHT WITHIN REACH
--- NOTE | 2020-04-24 22:43 | NUR ---
INTERNAL MEDICINE PROGRESS NOTE DATE: 04/24/20 SUBJECTIVE: AO X 3 again RA fio2 Worked with PT, couldnt stand. continued nausea significant, no emesis. GI took for EGD, noted REVIEW OF SYSTEMS: no headaches, no rash PHYSICAL EXAMINATION: VITAL SIGNS: vital signs noted and reviewed per the chart record. GENERAL: NAD, AO x 3 HEENT: Normocephalic, atraumatic. NECK: Supple. Throat midline. LUNGS: Bilateral air entry, limited, but clear. CARDIOVASCULAR: S1, S2. No murmurs, rubs, or gallops. ABDOMEN: Soft, nontender. EXTREMITIES: No clubbing, no cyanosis. 2 + edema of the legs. NEUROLOGIC: She moves all four extremities. LABORATORY DATA: Na 122, k 3.2. cr 0.91. IMPRESSION AND PLAN: 1. Critical hyponatremia, sodium 113. Etiology under investigation, SIADH + dehydration? Slowly better. 2. Mild anemia. 3. Mild leukocytosis, better 4. Improving cellulitis. 5. Leg edema, not otherwise specified. 6. Encephalopathy, toxic metabolic 7. Rx sepsis. 8. History of lymphoma. 9. History of left breast cancer. 10. Gastroesophageal reflux disease. 11. Hyperlipidemia. 12. Hypertension. 13. Diabetes. 14. Osteoporosis and fractures in the past. Initial antibiotics for sepsis and cellulitis +/- other Follow up clinical exams Follow up edema, improving Check MRI brain Follow-up serial sodium levels. Appreciate Nephrology process improvement consultant Dr. Patton PT/OT follow up Thank you very much, Dr. Link. Please call for any questions.
[2020-04-25] VITALS (12 sets, daily range): BP systolic 136–156; BP diastolic 53–95
[2020-04-25] MEDS: METOCLOPRAMIDE HCL 10 MG/2ML VIAL IV SCH ×4 (05:08→22:03)
[2020-04-25] MEDS: PANTOPRAZOLE 40 MG 10ML VIAL IV SCH ×2 (05:08→16:53)
[2020-04-25] MEDS: PIPER-TAZ 3.375 GM 50 ML IV SCH ×4 (05:08→23:24)
--- NOTE | 2020-04-25 05:36 | NUR ---
PATIENT SEEN SLEEPING NO DISTRESS NOTED, AM MEDICATION GIVEN IV, IV SITE RIGHT AC FLUSHES W/O DIFFICULTY, SITE C/D/I, NO PAIN OR DISCOMFORT NOTED, STABLE AFEBRILE CALL LIGHT WITHIN REACH
[2020-04-25 06:35] LABS: BASOPHILS % 0.4 % (0.0-1.0); EOSINOPHILS # (AUTO) 0.1 (0.0-0.4); EOSINOPHILS % 0.9 % (0.0-6.0); HEMATOCRIT 30.6 % (34.2-44.1); HEMOGLOBIN 10.7 g/dL (12.0-16.0); LYMPHOCYTES # (AUTO) 0.9 (1.0-3.2); LYMPHOCYTES % 10.4 % (18.0-39.1); MEAN CORPUSCULAR HEMOGLOBIN 30.5 pg (28-32); MEAN CORPUSCULAR VOLUME 87.2 fL (81-99); MONOCYTES # (AUTO) 1.4 (0.2-0.8); MONOCYTES % 16.8 % (4.4-11.3); NEUTROPHILS # (AUTO) 5.8 (2.1-6.9); NEUTROPHILS % 70.8 % (38.7-80.0); PLATELET COUNT 118 x10e3/uL (140-360); RED BLOOD COUNT 3.51 x10e6/uL (3.6-5.1); RED CELL DISTRIBUTION WIDTH 13.2 % (11.7-14.4)
[2020-04-25 07:01] LABS: ANION GAP 15.5 mmol/L (8-16); CALCIUM 8.2 mg/dL (8.4-10.2); CREATININE, SERUM 0.95 mg/dL (0.57-1.11); POTASSIUM 3.5 mmol/L (3.5-5.1)
[2020-04-25] MEDS: LORATADINE 10 MG TAB PO SCH (08:40)
[2020-04-25] MEDS: ASPIRIN 81 MG CHEW TAB PO SCH (08:40)
[2020-04-25] MEDS: DONEPEZIL HCL 5 MG TAB PO SCH (08:40)
[2020-04-25] MEDS: FUROSEMIDE 20 MG TAB PO SCH ×2 (08:40→16:53)
[2020-04-25] MEDS: SODIUM CHLORIDE 1 GM TAB PO SCH (08:40)
[2020-04-25] MEDS: SLOW MAG 64 MG PO SCH (08:40)
[2020-04-25] MEDS: AMLODIPINE BESYLATE 5 MG TAB PO SCH (08:40)
--- NOTE | 2020-04-25 13:42 | NUR ---
INTERNAL MEDICINE PROGRESS NOTE DATE: 04/25/20 SUBJECTIVE: AO X 3 RA fio2 no nausea no emesis yesterday patient couldnt walk with PT ate well REVIEW OF SYSTEMS: no headaches, no rash PHYSICAL EXAMINATION: VITAL SIGNS: vital signs noted and reviewed per the chart record. GENERAL: NAD, AO x 3 HEENT: Normocephalic, atraumatic. NECK: Supple. Throat midline. LUNGS: Bilateral air entry, limited, but clear. CARDIOVASCULAR: S1, S2. No murmurs, rubs, or gallops. ABDOMEN: Soft, nontender. EXTREMITIES: No clubbing, no cyanosis. 1+ edema of the legs. NEUROLOGIC: She moves all four extremities. LABORATORY DATA: Na 130, k 3.5. cr 0.91. IMPRESSION AND PLAN: 1. Critical hyponatremia, sodium 113. Etiology under investigation, SIADH + dehydration? better. 2. Mild anemia. 3. Mild leukocytosis, better 4. Improving cellulitis. 5. Leg edema, not otherwise specified. 6. Encephalopathy, toxic metabolic 8. History of lymphoma. 9. History of left breast cancer. 10. Gastroesophageal reflux disease. 11. Hyperlipidemia. 12. Hypertension. 13. Diabetes. 14. Osteoporosis and fractures in the past. Initial antibiotics for sepsis and cellulitis +/- other Follow up clinical exams Follow up edema, improving Check MRI brain Follow-up serial sodium levels. Appreciate Nephrology sales representative consultant Dr. Patton. stop NACL tablets. patient at discharge should get low dose lasix and mild fluid restriction. K replete PT/OT follow up. Discharge decision likely based on mobility +/- MRI brain. May be considered for SNF vs home depends on progress. Thank you very much, Dr. Link. Please call for any questions.
--- NOTE | 2020-04-25 19:15 | NUR ---
SBAR AT BEDSIDE RECEIVED PATIENT SEEN RESTING COMFORTABLY AOX3 GHANAIAN SPEAKING, DEFENSE ATTORNEY USED TO COMMUNICATE, PATIENT DENIES ANY TYPE OF PAIN OR DISCOMFORT AT THIS TIME, DAYSHIFT RN STATES IV SITE POSSIBLE INFILTRATION NOTED, IV RAC DISCONTINUED, NEW IV STARTED USING ASEPTIC TECHNIQUE
--- NOTE | 2020-04-25 20:34 | NUR ---
PATIENT SEEN ATTEMPTING TO GET OUT OF BED, TAJIK SPEAKING ONLY, USING CIGAR HEAD STRINGER, ATTEMPTED TO GIVE ASSISTANCE, PT STATING "DOCTOR TOLD ME I COULD GET UP OUT OF BED", PATIENT SEEN STRUGGLING TO SIT UP ON SIDE OF BED, WITH FEET DANGLING OUT THE SIDE, BED ALARM ACTIVATED ATTEMPTING TO GET OUT OF BED, PATIENT STATES " SHE WANTS TO SIT IN CHAIR FOR A WHILE TIRED OF SITTING IN BED", ASSISTED PATIENT TO CHAIR NEXT TO BED, WITH WALKER AND ASSIST x 1, ONLY ABLE TO TAKE TWO SMALL STEPS, THEN CHAIR POSITIONED BEHIND HER SO SHE COULD SAFELY SIT DOWN IN CHAIR WITHOUT FALLING, SAFETY MAINTAINED, WILL CLOSELY MONITOR PATIENT
--- NOTE | 2020-04-26 03:08 | NUR ---
PATIENT CALL LIGHT ANSWERED, USING CHURNER TELEPHONE SERVICE SHE EXPRESSED HER NEED FOR INCONTINENCE CARE, PATIENT REMAINS ON PUREWICK STATING "SHE FEELS WET" " I WANT TO BE CHECKED", PATIENT INCONTINENCE BRIEF CHECKED SHE REMAINS WARM AND DRY, CALL LIGHT PLACED BACK WITHIN HER REACH, BED IN LOWEST POSITION
[2020-04-26] MEDS: METOCLOPRAMIDE HCL 10 MG/2ML VIAL IV SCH ×4 (04:49→23:12)
[2020-04-26] MEDS: PANTOPRAZOLE 40 MG 10ML VIAL IV SCH ×2 (04:49→17:53)
[2020-04-26 04:50] VITALS: BP 150/64
[2020-04-26] MEDS: PIPER-TAZ 3.375 GM 50 ML IV SCH ×4 (06:01→23:12)
[2020-04-26 07:34] LABS: ANION GAP 14.3 mmol/L (8-16); CALCIUM 8.9 mg/dL (8.4-10.2); CREATININE, SERUM 1.1 mg/dL (0.57-1.11); POTASSIUM 3.3 mmol/L (3.5-5.1)
[2020-04-26 07:58] VITALS: BP 148/67
[2020-04-26] MEDS: SLOW MAG 64 MG PO SCH (09:00)
[2020-04-26 09:15] VITALS: BP 148/67
[2020-04-26] MEDS: LORATADINE 10 MG TAB PO SCH (09:15)
[2020-04-26] MEDS: ASPIRIN 81 MG CHEW TAB PO SCH (09:15)
[2020-04-26] MEDS: AMLODIPINE BESYLATE 5 MG TAB PO SCH (09:15)
[2020-04-26] MEDS: FUROSEMIDE 20 MG TAB PO SCH ×2 (09:15→17:53)
[2020-04-26] MEDS: POTASSIUM CHLORIDE 20 MEQ TAB CR PO SCH (09:15)
[2020-04-26] MEDS: DONEPEZIL HCL 5 MG TAB PO SCH (09:15)
[2020-04-26] MEDS ORDERED: GADOBENATE DIMEGLUMINE 1 ML IV ONE (11:00)
--- NOTE | 2020-04-26 13:22 | Diagnostic Imaging Report ---
MRI BRAIN WOW HISTORY: Breast cancer, possible malignancy, SIADH COMPARISON: Report from brain MRI dated 08/08/2013 TECHNIQUE: Multiplanar, multisequence MRI of the brain (including diffusion-weighted imaging) was performed before and after the administration of intravenous, gadolinium based contrast. Motion artifacts obscure some details. DISCUSSION: Scalp/bone marrow: Unremarkable. Brain sulci: Prominent. Ventricles: Compensatory dilatation. Extra-axial spaces: No masses or fluid collections. Parenchyma: Scattered T2/FLAIR hyperintense foci throughout the supratentorial white matter and nba are likely chronic microvascular ischemic changes. Otherwise, no mass, hemorrhage, or acute vascular insults. No abnormal parenchymal, leptomeningeal, or dural enhancement is seen. Vessels: Normal flow voids in major arteries and veins. Sellar/Suprasellar region: No abnormalities. Craniocervical junction: No abnormalities. Incidental findings: Bilateral ocular lens replacement. Focal fusiform enlargement of the right superior rectus muscle measures up to 0.8 cm in thickness; the tendon is involved. IMPRESSION: 1. No acute intracranial abnormalities. 2. Nonspecific focal fusiform enlargement of the right superior rectus muscle could be due to metastatic disease. Differential considerations include inflammatory process. 3. No other evidence for intracranial or calvarial metastatic disease. 4. Generalized cerebral volume loss. Mild supratentorial/pontine chronic microvascular ischemic change. Signed by: Dr. Wilfred Hatch M.D. on 04/26/2020 1:19 PM
--- NOTE | 2020-04-26 13:29 | Progress Note ---
DATE: SUBJECTIVE: This is an 85-year-old female patient who has been seen for the following problems: 1. Hyponatremia, severe. Etiology unclear. SIADH plus dehydration. 2. Leukocytosis. 3. Anemia. 4. Cellulitis, improving. 5. Leg edema. 6. Encephalopathy, toxic. 7. History of lymphoma. 8. History of left breast cancer. 9. Gastroesophageal reflux disease. 10. Hyperlipidemia. 11. Hypertension. 12. Diabetes mellitus. 13. . PLAN OF CARE: At this point in time, continue antibiotics for possible . Follow up for edema. MRI of the brain has been ordered. Nephrology following the patient. PT/OT ordered. List of medications noted. Potassium chloride, Lasix, Reglan, Claritin, Aricept, aspirin, amlodipine, antibiotic consists of piperacillin and tazobactam, and Protonix intravenously. Complete list of medications noted. MD AMBIKA Palmer/JORGITO /[id number]
[2020-04-26 16:00] VITALS: BP 140/57
--- NOTE | 2020-04-26 17:44 | History and Physical ---
Consultation to Dr. Rios. HISTORY OF PRESENT ILLNESS: Pramod Simmons is an 85-year-old female, referred to me for evaluation of breast cancer and lymphoma. Most of the history has been obtained by my personal communication with Tsering Yu, who is the granddaughter at [phone]. She claims that she had left breast cancer for which she had lumpectomy and radiation therapy by Dr. Cunningham. The patient also has had a lymph node biopsy. This was reported to be low-grade lymphoma. These records, however, are available at this time at [facility]. The patient had presented with weakness and shortness of breath. SOCIAL HISTORY: Could not be obtained. FAMILY HISTORY: Could not be obtained. ALLERGIES: 1. LATEX. 2. LOSARTAN. 3. SIMVASTATIN. 4. INSULIN. MEDICATIONS: At this time, 1. Zosyn. 2. Potassium. 3. Sodium chloride. 4. Amlodipine. 5. Aspirin. 6. Donepezil. 7. Loratadine. 8. Hydralazine. 9. Tylenol. 10. Ondansetron. 11. Metoclopramide. 12. Protonix. REVIEW OF SYSTEMS: HEENT: Normal. CARDIAC: History of hypertension and hyperlipidemia. RESPIRATORY: Normal. GI: The patient presents with intractable nausea and vomiting. : Normal. MUSCULOSKELETAL: The patient has cellulitis of right leg. PHYSICAL EXAMINATION: GENERAL: A moderately built female, confused. No palpable adenopathy. HEART: Within normal limits. LUNGS: Clear. ABDOMEN: Soft. RECTAL: Deferred. VAGINAL: Deferred. CENTRAL NERVOUS SYSTEM: Essentially normal. EXTREMITIES: The patient to have a cellulitis of the right lower extremity. LABORATORY DATA: Sodium 116, potassium 3.2, chloride is 84, CO2 of 27. The sodium had gone up to 122, BUN 11, creatinine 0.9, and glucose 136. Hemoglobin of 10.6, hematocrit 30.8, white count 10,000, and platelets of 125,000. Bilirubin 0.5, SGOT 34, SGPT 20, and alkaline phosphatase 56. IMAGING DATA: Chest x-ray shows the patient who has pleural effusion. IMPRESSION: 1. Hyponatremia (116), possible syndrome of inappropriate antidiuretic hormone secretion. 2. Cellulitis of right leg. 3. Left-sided pleural effusion. 4. Hypertension. 5. Hyperlipidemia. 6. Diabetes mellitus. 7. History of osteoporosis. 8. History of left shoulder fracture. 9. History of left hip fracture. 10. History of left breast cancer. 11. History of lymphoma, treated in 2017, marginal zone. 12. Anemia of chronic disease. 13. Hypoproteinemia (5.8). 14. Hypoalbuminemia (3.2). 15. Hypocalcemia (8.1). 16. History of umbilical hernia. 17. History of intractable nausea and vomiting. 18. History of Alzheimer's. PLAN, COMMENTS, AND SUGGESTION: Suggest antibiotics. Suggest MRI of the brain. I will confine myself to Hematology. The patient is suggested to be sent back to Dr. Cunningham once stable. MD LAKIA Parker/JORGITO /[id number] cc: MD Negrito Thompson MD Jose Isaias Mayen, MD Eamon Jones MD
--- NOTE | 2020-04-26 19:25 | NUR ---
BEDSIDE SHIFT REPORT RECEIVED. PATIENT IS RESTING IN BED, AA0X3. REPS EVEN AND UNLABORED. NO ACUTE DISTRESS NOTED. TELE IN PLACE. EDUCATED PT ABOUT FALL PRECAUTIONS. PT VERBALIZED UNDERSTANDING. CALL LIGHT WITH IN EASY REACH. INSTRUCTED PT TO USE CALL LIGHT FOR ALL THE NEEDS. BED IS LOW AND LOCKED. SIDE RAILS X2. BED ALARM IS ON. PT DENIES NEEDS AT THIS TIME. CONTINUE TO MONITOR CLOSELY
--- NOTE | 2020-04-26 19:50 | Progress Note ---
DATE: Renal Progress Note SUBJECTIVE: Events over the past 24 hours have been noted. No chest pain. No shortness of breath. PHYSICAL EXAMINATION: VITAL SIGNS: Blood pressure 140/57, pulse 96, afebrile. GENERAL: The patient is in no acute distress. HEENT: No increased JVD. CARDIOVASCULAR: Regular rate and rhythm. LUNGS: Decreased breath sounds bilaterally. ABDOMEN: Positive bowel sounds. EXTREMITIES: Trace edema of the legs. LABORATORY RESULTS: Sodium is 131, potassium 3.3, chloride 88, bicarbonate 32, BUN and creatinine 10 and 1.1 respectively. IMPRESSION: 1. Hyponatremia. 2. Hypokalemia. PLAN: The patient's sodium is coming up nicely and is coming up in appropriate rate. She is not on IV fluids at this time. Her potassium will be replaced. I will continue to follow the patient with you. Ather MD NICO William/JORGITO /[id number]
[2020-04-26 20:00] VITALS: BP 145/85
[2020-04-26 22:38] VITALS: BP 145/85
[2020-04-27] VITALS (7 sets, daily range): BP systolic 139–157; BP diastolic 58–77
[2020-04-27] MEDS ORDERED: GUAIFENESIN/CODEINE 10 ML CUP PO PRN (00:30)
--- NOTE | 2020-04-27 00:30 | NUR ---
PATIENT C/O COUGHING. NEW ORDER RECEIVED FROM DR. DU
[2020-04-27] MEDS: METOCLOPRAMIDE HCL 10 MG/2ML VIAL IV SCH ×4 (04:37→21:33)
[2020-04-27] MEDS: PANTOPRAZOLE 40 MG 10ML VIAL IV SCH ×2 (05:09→18:02)
[2020-04-27] MEDS: PIPER-TAZ 3.375 GM 50 ML IV SCH ×3 (05:09→18:02)
--- NOTE | 2020-04-27 06:11 | NUR ---
PAGED DR. MORAN FOR CONSULT
[2020-04-27 06:42] LABS: ANION GAP 17.6 mmol/L (8-16); CALCIUM 9.1 mg/dL (8.4-10.2); CREATININE, SERUM 1.2 mg/dL (0.57-1.11); POTASSIUM 3.6 mmol/L (3.5-5.1)
[2020-04-27] MEDS: SLOW MAG 64 MG PO SCH (09:00)
[2020-04-27] MEDS: DONEPEZIL HCL 5 MG TAB PO SCH (09:15)
[2020-04-27] MEDS: LORATADINE 10 MG TAB PO SCH (09:15)
[2020-04-27] MEDS: FUROSEMIDE 20 MG TAB PO SCH ×2 (09:15→18:02)
[2020-04-27] MEDS: AMLODIPINE BESYLATE 5 MG TAB PO SCH (09:15)
[2020-04-27] MEDS: POTASSIUM CHLORIDE 20 MEQ TAB CR PO SCH (09:15)
[2020-04-27] MEDS: ASPIRIN 81 MG CHEW TAB PO SCH (09:15)
--- NOTE | 2020-04-27 14:20 | NUR ---
SPOKE WITH DAUGHTER DOMINICK ABOUT ORDER FROM FOR SNF, SHE CHOSE [facility]
--- NOTE | 2020-04-27 14:35 | NUR ---
INTERNAL MEDICINE PROGRESS NOTE DATE: 04/27/20 SUBJECTIVE: AO X 3 RA fio2 eating moderate amounts no nausea? patient couldnt walk with PT d/w daughter. SNF elected REVIEW OF SYSTEMS: no headaches, no rash PHYSICAL EXAMINATION: VITAL SIGNS: vital signs noted and reviewed per the chart record. GENERAL: NAD, AO x 3 HEENT: Normocephalic, atraumatic. NECK: Supple. Throat midline. LUNGS: Bilateral air entry, limited, but clear. CARDIOVASCULAR: S1, S2. No murmurs, rubs, or gallops. ABDOMEN: Soft, nontender. EXTREMITIES: No clubbing, no cyanosis. 1+ edema of the legs. NEUROLOGIC: She moves all four extremities. LABORATORY DATA: Na 129, k 3.6. cr 1.20 IMPRESSION AND PLAN: 1. Critical hyponatremia, sodium 113. Etiology under investigation, SIADH + dehydration? better. 2. Mild anemia. 3. Mild leukocytosis, better 4. Improving cellulitis. 5. Leg edema, not otherwise specified. 6. Encephalopathy, toxic metabolic 8. History of lymphoma. 9. History of left breast cancer. 10. Gastroesophageal reflux disease. 11. Hyperlipidemia. 12. Hypertension. 13. Diabetes. 14. Osteoporosis and fractures in the past. 15. debility/weakness Initial antibiotics for sepsis and cellulitis +/- other Follow up edema, improving MRI brain noted. Follow-up serial sodium levels. Appreciate Nephrology solar sales consultant Dr. Patton. patient at discharge should get low dose lasix and mild fluid restriction. PT/OT follow up. debilitated significantly. consider SNF. d/w daughter, they want to try [facility]. Thank you very much, Dr. Link. Please call for any questions.
--- NOTE | 2020-04-27 18:51 | Progress Note ---
DATE: Renal Progress Note SUBJECTIVE: The patient has no complaints. No chest pain. No shortness of breath. PHYSICAL EXAMINATION: VITAL SIGNS: Blood pressure 146/58, pulse 92, afebrile. GENERAL: The patient is in no acute distress. HEENT: No increased JVD. CARDIOVASCULAR: Regular rate and rhythm. LUNGS: Decreased breath sounds. ABDOMEN: Positive bowel sounds. EXTREMITIES: No edema, cyanosis, or clubbing. LABORATORY RESULTS: Sodium 129, potassium 3.6, chloride 86, bicarbonate 29. BUN and creatinine 11 and 1.2 respectively. IMPRESSION: Hyponatremia. PLAN: The patient's sodium is still relatively stable. It did drop by 2 points, but it is okay and she is on a water restriction. Will continue the water restriction of 1 L per 24 hours and only water is in the restriction. She still has other beverages. Ather MD NICO William/JORGITO /[id number]
--- NOTE | 2020-04-27 19:20 | NUR ---
Bedside rounds completed with morning nurse. Pt alert and oriented to name, lying in bed HOB 60 degrees. No s/s of pain at this time. Call light within reach. Bed alarm on.
[2020-04-28] VITALS: BP 127/41
[2020-04-28 04:00] VITALS: BP 149/64
[2020-04-28] MEDS: METOCLOPRAMIDE HCL 10 MG/2ML VIAL IV SCH ×2 (04:00→09:15)
[2020-04-28] MEDS: PIPER-TAZ 3.375 GM 50 ML IV SCH ×3 (06:00→12:16)
[2020-04-28] MEDS: PANTOPRAZOLE 40 MG 10ML VIAL IV SCH (06:00)
--- NOTE | 2020-04-28 07:00 | NUR ---
BEDSIDE SHIFT REPORT RECEIVED FROM PAID SEARCH MARKETING STRATEGIST RN. PT DENIES NEEDS AT THIS TIME.
[2020-04-28 08:06] VITALS: BP 138/73
[2020-04-28 08:10] VITALS: BP 138/73
[2020-04-28] MEDS: SLOW MAG 64 MG PO SCH (09:00)
[2020-04-28] MEDS: LORATADINE 10 MG TAB PO SCH (09:15)
[2020-04-28] MEDS: FUROSEMIDE 20 MG TAB PO SCH (09:15)
[2020-04-28] MEDS: ASPIRIN 81 MG CHEW TAB PO SCH (09:15)
[2020-04-28] MEDS: AMLODIPINE BESYLATE 5 MG TAB PO SCH (09:15)
[2020-04-28] MEDS: DONEPEZIL HCL 5 MG TAB PO SCH (09:15)
[2020-04-28] MEDS: POTASSIUM CHLORIDE 20 MEQ TAB CR PO SCH (09:17)
--- NOTE | 2020-04-28 09:21 | NUR ---
[facility] DISCHARGE INFORMATION PATIENT HAS BEEN ACCEPTED TO: NAME: MARCELA RAYMUNDO ADDRESS: [id number] [place] [address] ACCEPTING MANAGEMENT PSYCHOLOGIST: PATRICE MARCUM ACCEPTING MD:EPHRAIM ROOM:[id number] NURSE CALL REPORT TO: [phone] IMM SIGNED AND OBTAINED (if applicable): IMM THE FOLLOWING DOCUMENTS MUST ACCOMPANY PATIENT FOR TRANSFER: COPIED CHART:PACKET
[2020-04-28 11:37] VITALS: BP 138/62
--- NOTE | 2020-04-28 12:30 | NUR ---
OK FROM THE STANDPOINT OF DR. MARTINES TO TRANSFER TO SNF.
--- NOTE | 2020-04-28 13:29 | NUR ---
2ND CALL PLACED TO DR. ROCHA SERVICE. SPOKE TO DR. YE WHO WOULD ALSO TRY TO REACH HIM.
[2020-04-28] MEDS ORDERED: FUROSEMIDE20 MG PO (14:35)
[2020-04-28] MEDS ORDERED: KEFLEX500 MG PO (14:35)
[2020-04-28] MEDS ORDERED: KLOR-CON M2020 MEQ PO (14:38)
--- NOTE | 2020-04-28 14:40 | Progress Note ---
DATE: 04/28/2020 Renal Progress Note SUBJECTIVE: Events over the past 24 hours have been noted. No chest pain or shortness of breath. PHYSICAL EXAMINATION: VITAL SIGNS: Blood pressure 130/62, pulse 104, and afebrile. GENERAL: The patient is in no acute distress. HEENT: No increased JVD. CARDIOVASCULAR: Regular rate and rhythm. LUNGS: Clear to auscultation. ABDOMEN: Decreased bowel sounds. EXTREMITIES: Very trace bilateral lower extremity edema. LABORATORY RESULTS: Sodium 129, potassium 3.6, chloride 86, bicarbonate 29, BUN and creatinine 11 and 1.2. IMPRESSION/PLAN: Hyponatremia. The patient's sodium is stable. We will continue the water restriction of 1 L per day and the restriction is only for water. She does still have other beverages. The patient is okay from a renal standpoint to go to the SNF or to the snf. Ather MD NICO William/JORGITO /[id number]
[2020-04-28 16:01] VITALS: BP 141/62
--- NOTE | 2020-04-28 16:39 | NUR ---
PT TRANSPORTED TO [facility]. FAMILY CALLED AND NOTIFIED.
--- NOTE | 2020-04-28 18:29 | NUR ---
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 Ht: 59 in Wt: 138 lb BMI: 27.9 kg/m2 IBW: [address] Assessment: (04/28/20) Chart reviewed. Labs and meds reviewed. Pt is a 57 year old female admitted with dyspnea, tachycardia, and hyperkalemia. Pt is primarily [place] speaking per chart. Spoke to RN who reports pt is eating >50% of meals. No reports of recent unintentional weight loss per chart. Will continue to monitor Current Diet: 1800 ADA Malnutrition Evaluation (04/28/20) The patient does not meet criteria for a specified degree of malnutrition at this time. Will re-evaluate at follow-up as appropriate. Diet Education Needs Assessment: RD is available for diet education as needed Nutrition Care Level: low Signed: Pia Cox, RD, LD
== END 2020-04-28 16:30 | DRG 871 ==
LOC: ER 10:09 → ERHOLD 11:56 → MED/SURG2 16:43
PROVIDERS: ADMIT Internal Medicine; ATTEND Internal Medicine
PROC: 0DB78ZX Excision of Stomach, Pylorus, Via Natural or Artificial Opening Endoscopic, Diagnostic (ICD-10-PCS; principal; 2020-04-24 14:58)
DX: A41.9 Sepsis, unspecified organism (principal); G92 Toxic encephalopathy; E22.2 Syndrome of inappropriate secretion of antidiuretic hormone; L03.90 Cellulitis, unspecified; L03.115 Cellulitis of right lower limb; J90 Pleural effusion, not elsewhere classified; E86.0 Dehydration; E87.70 Fluid overload, unspecified; I10 Essential (primary) hypertension; Z85.3 Personal history of malignant neoplasm of breast; Z85.72 Personal history of non-Hodgkin lymphomas; D63.8 Anemia in other chronic diseases classified elsewhere; E77.8 Other disorders of glycoprotein metabolism; E88.09 Other disorders of plasma-protein metabolism, not elsewhere classified; G30.9 Alzheimer's disease, unspecified; F02.80 Dementia in other diseases classified elsewhere, unspecified severity, without behavioral disturbance, psychotic disturbance, mood disturbance, and anxiety; E83.51 Hypocalcemia; M81.0 Age-related osteoporosis without current pathological fracture; K29.70 Gastritis, unspecified, without bleeding; K44.9 Diaphragmatic hernia without obstruction or gangrene; E11.9 Type 2 diabetes mellitus without complications; E87.6 Hypokalemia
CPT/HCPCS: 36415; 43239; 70553; 71045; 76705; 80048; 80053; 80061; 81001; 82150; 82550; 82553; 82607; 82728; 82746; 82947; 82948; 83540; 83690; 83935; 84295; 84443; 84466; 84484; 84520; 85025; 85045; 88305; 88312; 93005; 93971; 97139; 99284; J1940; J2001; J2405; J2543; J2765; J3370; J3480; J7030; U0002

== ENCOUNTER 2020-08-02 16:14 | Inpatient (IN) | payer MEDICARE, OTHER ==
[~2020-08-02] VITALS: Ht 144.8 cm; Wt 62.6 kg
[~2020-08-02 16:14] MED LIST changes: +ARICEPT5 MG PO; +ASPIRIN81 MG PO; +FUROSEMIDE20 MG PO; +GLIMEPIRIDE2 MG PO; +KEFLEX500 MG PO; +KLOR-CON M2020 MEQ PO; +METOCLOPRAM5 MG/5 ML PO; +SLOW-MAG64 MG PO
[2020-08-02] MEDS ORDERED: ASPIRIN 81 MG CHEW TAB PO ONE (18:15)
[2020-08-02 20:44] LABS: BASOPHILS % 0.3 % (0.0-1.0); EOSINOPHILS # (AUTO) 0.1 (0.0-0.4); EOSINOPHILS % 0.8 % (0.0-6.0); HEMATOCRIT 32.4 % (34.2-44.1); HEMOGLOBIN 10.6 g/dL (12.0-16.0); LYMPHOCYTES # (AUTO) 1.3 (1.0-3.2); LYMPHOCYTES % 17.8 % (18.0-39.1); MEAN CORPUSCULAR HEMOGLOBIN 29.3 pg (28-32); MEAN CORPUSCULAR HGB CONC 32.7 g/dL (31-35); MEAN CORPUSCULAR VOLUME 89.5 fL (81-99); MONOCYTES # (AUTO) 0.9 (0.2-0.8); MONOCYTES % 12.6 % (4.4-11.3); NEUTROPHILS # (AUTO) 4.8 (2.1-6.9); NEUTROPHILS % 67.9 % (38.7-80.0); PLATELET COUNT 125 x10e3/uL (140-360); RED BLOOD COUNT 3.62 x10e6/uL (3.6-5.1); RED CELL DISTRIBUTION WIDTH 13.4 % (11.7-14.4)
[2020-08-02 21:09] LABS: ALBUMIN 3.8 g/dL (3.5-5.0); ALBUMIN/GLOBULIN RATIO 1.2 (0.8-2.0); ANION GAP 17.3 mmol/L (8-16); CREATININE, SERUM 1.29 mg/dL (0.57-1.11); POTASSIUM 4.3 mmol/L (3.5-5.1)
[2020-08-02 21:14] LABS: CALCIUM 10.7 mg/dL (8.4-10.2)
[2020-08-02 21:16] LABS: CREATINE KINASE MB 2.7 ng/mL (0-5.0)
[2020-08-02 21:35] LABS: CLARITY,URINE SL CLOUDY (CLEAR); COLOR,URINE YELLOW (YELLOW); KETONES,URINE NEGATIVE (NEGATIVE); LEUKOCYTE ESTERASE ,URINE MODERATE (NEGATIVE); NITRITE,URINE NEGATIVE (NEGATIVE); PROTEIN,URINE DIPSTICK NEGATIVE (NEGATIVE); URINE UROBILINOGEN 0.2 mg/dL (0.2 - 1)
[2020-08-02] MEDS: CEFTRIAXONE SOD 1 GM/NS 50 ML 50 ML IV SCH (21:39)
[2020-08-02] MEDS ORDERED: CEFTRIAXONE SOD 1 GM/NS 50 ML 50 ML IV ONE (21:41)
[2020-08-02 21:51] LABS: WBC,URINE (MAN) >50 /HPF (0-5)
[2020-08-02 21:52] LABS: BACTERIA,URINE MANY /HPF; EPITHELIAL CELLS,URINE FEW /LPF
[2020-08-02] MEDS ORDERED: SODIUM CHLORIDE 0.9% 1000ML 1,000 ML ONE (23:29)
[2020-08-02] MEDS ORDERED: SODIUM CHLORIDE 0.9% 1000ML 1,000 ML IV ONE (23:30)
[2020-08-03] MEDS ORDERED: SODIUM CHLORIDE 0.9% 1000ML 1,000 ML IV ONE (00:30)
[2020-08-03] MEDS ORDERED: IOPAMIDOL 370 MG/ML 200 ML INFUS..BTL INJ ONE (03:39)
[2020-08-03] MEDS ORDERED: SODIUM CHLORIDE 0.9% 50ML 50 ML ONE (03:39)
[2020-08-03 08:14] LABS: CREATINE KINASE MB 0.9 ng/mL (0-5.0)
[2020-08-03 09:02] VITALS: BP 117/60
[2020-08-03 09:59] VITALS: BP 117/60
[2020-08-03 12:00] VITALS: BP 120/56
[2020-08-03] MEDS ORDERED: DEXTROSE 50% SYRINGE 50 ML IV PRN (12:00)
[2020-08-03] MEDS: INSULIN REGULAR, HUMAN 100 UNIT/1 ML 3ML VIAL SQ SCH ×3 (12:00→21:00)
[2020-08-03] MEDS ORDERED: HYDRALAZINE HCL 20 MG/ML VIAL IV PRN (12:00)
[2020-08-03 13:42] LABS: CREATINE KINASE MB 0.8 ng/mL (0-5.0)
[2020-08-03 16:00] VITALS: BP 128/83
[2020-08-03] MEDS ORDERED: FUROSEMIDE 20 MG TAB PO SCH (17:00)
[2020-08-03 20:22] LABS: CREATINE KINASE MB 0.9 ng/mL (0-5.0)
[2020-08-03] MEDS: ASPIRIN 81 MG CHEW TAB PO SCH (21:00)
[2020-08-03] MEDS: CRESTOR 10MG PO SCH (21:00)
[2020-08-03] MEDS: DONEPEZIL HCL 5 MG TAB PO SCH (21:00)
[2020-08-03] MEDS: CEFTRIAXONE SOD 1 GM/NS 50 ML 50 ML IV SCH (21:15)
[2020-08-04] VITALS (10 sets, daily range): BP systolic 127–139; BP diastolic 56–77
[2020-08-04] MEDS: ONDANSETRON HCL INJ 2MG/ML 2ML 2 MG/ML VIAL IV PRN ×2 (01:01→08:35)
[2020-08-04 06:40] LABS: BASOPHILS % 0.5 % (0.0-1.0); EOSINOPHILS # (AUTO) 0.1 (0.0-0.4); EOSINOPHILS % 1.7 % (0.0-6.0); HEMATOCRIT 28.3 % (34.2-44.1); HEMOGLOBIN 9.1 g/dL (12.0-16.0); LYMPHOCYTES # (AUTO) 1.2 (1.0-3.2); MEAN CORPUSCULAR HEMOGLOBIN 28.8 pg (28-32); MEAN CORPUSCULAR HGB CONC 32.2 g/dL (31-35); MEAN CORPUSCULAR VOLUME 89.6 fL (81-99); MONOCYTES # (AUTO) 0.8 (0.2-0.8); MONOCYTES % 12.9 % (4.4-11.3); NEUTROPHILS # (AUTO) 3.7 (2.1-6.9); NEUTROPHILS % 63.4 % (38.7-80.0); PLATELET COUNT 103 x10e3/uL (140-360); RED BLOOD COUNT 3.16 x10e6/uL (3.6-5.1); RED CELL DISTRIBUTION WIDTH 13.4 % (11.7-14.4)
[2020-08-04 06:59] LABS: ALBUMIN 3.2 g/dL (3.5-5.0); ALBUMIN/GLOBULIN RATIO 1.3 (0.8-2.0); ANION GAP 15.8 mmol/L (8-16); CALCIUM 9.1 mg/dL (8.4-10.2); CREATININE, SERUM 1.07 mg/dL (0.57-1.11); POTASSIUM 3.8 mmol/L (3.5-5.1)
[2020-08-04] MEDS: INSULIN REGULAR, HUMAN 100 UNIT/1 ML 3ML VIAL SQ SCH ×4 (07:30→20:39)
[2020-08-04] MEDS: GLIMEPIRIDE 2 MG TAB PO SCH (08:34)
[2020-08-04] MEDS: AMLODIPINE BESYLATE 5 MG TAB PO SCH (08:35)
[2020-08-04] MEDS: MAGNESIUM OXIDE 400 MG TAB PO SCH (08:35)
[2020-08-04] MEDS ORDERED: SIMVASTATIN 40 MG TAB PO SCH (09:00)
[2020-08-04] MEDS ORDERED: LOSARTAN POTASSIUM 100 MG TAB PO SCH (09:00)
[2020-08-04] MEDS ORDERED: METHOCARBAMOL 500 MG TAB PO ONE (13:20)
[2020-08-04] MEDS ORDERED: MAGNESIUM SULFATE 2GM/50ML 100 ML IV ONE (14:30)
[2020-08-04] MEDS: HYDROCODONE/APAP 5MG-325MG TAB PO PRN (15:18)
[2020-08-04] MEDS: ASPIRIN 81 MG CHEW TAB PO SCH (20:08)
[2020-08-04] MEDS: CRESTOR 10MG PO SCH (20:08)
[2020-08-04] MEDS: DONEPEZIL HCL 5 MG TAB PO SCH (20:08)
[2020-08-04] MEDS: CEFTRIAXONE SOD 1 GM/NS 50 ML 50 ML IV SCH (20:08)
[2020-08-05] VITALS (9 sets, daily range): BP systolic 118–146; BP diastolic 53–70
[2020-08-05] MEDS: HYDROCODONE/APAP 5MG-325MG TAB PO PRN ×3 (00:47→18:28)
[2020-08-05 05:19] LABS: BASOPHILS % 0.5 % (0.0-1.0); EOSINOPHILS # (AUTO) 0.1 (0.0-0.4); EOSINOPHILS % 2.1 % (0.0-6.0); HEMOGLOBIN 8.6 g/dL (12.0-16.0); LYMPHOCYTES # (AUTO) 0.9 (1.0-3.2); LYMPHOCYTES % 13.2 % (18.0-39.1); MEAN CORPUSCULAR HEMOGLOBIN 29.2 pg (28-32); MEAN CORPUSCULAR HGB CONC 33.1 g/dL (31-35); MEAN CORPUSCULAR VOLUME 88.1 fL (81-99); MONOCYTES # (AUTO) 0.9 (0.2-0.8); MONOCYTES % 13.8 % (4.4-11.3); NEUTROPHILS # (AUTO) 4.6 (2.1-6.9); NEUTROPHILS % 70.1 % (38.7-80.0); PLATELET COUNT 107 x10e3/uL (140-360); RED BLOOD COUNT 2.95 x10e6/uL (3.6-5.1); RED CELL DISTRIBUTION WIDTH 13.4 % (11.7-14.4)
[2020-08-05 06:02] LABS: ANION GAP 11.3 mmol/L (8-16); CALCIUM 8.6 mg/dL (8.4-10.2); CREATININE, SERUM 1.01 mg/dL (0.57-1.11); POTASSIUM 4.3 mmol/L (3.5-5.1)
[2020-08-05] MEDS: INSULIN REGULAR, HUMAN 100 UNIT/1 ML 3ML VIAL SQ SCH ×4 (07:30→19:36)
[2020-08-05] MEDS ORDERED: NON-FORMULARY MEDICATION IV SCH (09:00)
[2020-08-05] MEDS: AMLODIPINE BESYLATE 5 MG TAB PO SCH (09:22)
[2020-08-05] MEDS: GLIMEPIRIDE 2 MG TAB PO SCH (09:22)
[2020-08-05] MEDS: ONDANSETRON HCL INJ 2MG/ML 2ML 2 MG/ML VIAL IV PRN (09:22)
[2020-08-05] MEDS: MAGNESIUM OXIDE 400 MG TAB PO SCH (09:22)
[2020-08-05] MEDS ORDERED: SODIUM CHLORIDE 0.9% 250ML 250 ML ONE (10:13)
[2020-08-05] MEDS: MEROPENEM 1GM 100 ML IV SCH ×2 (10:51→20:44)
[2020-08-05] MEDS: METFORMIN HCL 500 MG TAB PO SCH ×2 (11:44→15:47)
[2020-08-05] MEDS: ONDANSETRON HCL 4 MG ORAL DISINTEGRATING TAB PO PRN (18:28)
[2020-08-05] MEDS: CRESTOR 10MG PO SCH (20:44)
[2020-08-05] MEDS: ASPIRIN 81 MG CHEW TAB PO SCH (20:44)
[2020-08-05] MEDS: DONEPEZIL HCL 5 MG TAB PO SCH (20:44)
[2020-08-05] MEDS: MELATONIN 5 MG TABLET PO SCH (20:55)
[2020-08-06] VITALS (8 sets, daily range): BP systolic 111–149; BP diastolic 54–81
[2020-08-06] MEDS: HYDROCODONE/APAP 5MG-325MG TAB PO PRN ×4 (02:22→22:32)
[2020-08-06 04:46] LABS: BASOPHILS % 0.3 % (0.0-1.0); EOSINOPHILS # (AUTO) 0.2 (0.0-0.4); HEMATOCRIT 27.3 % (34.2-44.1); HEMOGLOBIN 8.9 g/dL (12.0-16.0); LYMPHOCYTES # (AUTO) 1.2 (1.0-3.2); LYMPHOCYTES % 18.3 % (18.0-39.1); MEAN CORPUSCULAR HGB CONC 32.6 g/dL (31-35); MEAN CORPUSCULAR VOLUME 88.9 fL (81-99); MONOCYTES # (AUTO) 0.9 (0.2-0.8); MONOCYTES % 14.2 % (4.4-11.3); NEUTROPHILS # (AUTO) 4.2 (2.1-6.9); NEUTROPHILS % 63.6 % (38.7-80.0); PLATELET COUNT 117 x10e3/uL (140-360); RED BLOOD COUNT 3.07 x10e6/uL (3.6-5.1); RED CELL DISTRIBUTION WIDTH 13.6 % (11.7-14.4)
[2020-08-06 05:06] LABS: ALBUMIN 2.9 g/dL (3.5-5.0); ALBUMIN/GLOBULIN RATIO 1.3 (0.8-2.0); ANION GAP 10.6 mmol/L (8-16); CALCIUM 8.6 mg/dL (8.4-10.2); CREATININE, SERUM 1.19 mg/dL (0.57-1.11); POTASSIUM 4.6 mmol/L (3.5-5.1)
[2020-08-06] MEDS: INSULIN REGULAR, HUMAN 100 UNIT/1 ML 3ML VIAL SQ SCH ×4 (07:30→21:00)
[2020-08-06] MEDS: AMLODIPINE BESYLATE 5 MG TAB PO SCH (07:52)
[2020-08-06] MEDS: MAGNESIUM OXIDE 400 MG TAB PO SCH (07:52)
[2020-08-06] MEDS: METFORMIN HCL 500 MG TAB PO SCH ×3 (07:52→16:12)
[2020-08-06] MEDS: MEROPENEM 1GM 100 ML IV SCH ×2 (07:53→21:49)
[2020-08-06] MEDS: GLIMEPIRIDE 2 MG TAB PO SCH (07:53)
[2020-08-06] MEDS: ONDANSETRON HCL 4 MG ORAL DISINTEGRATING TAB PO PRN ×3 (11:56→22:04)
[2020-08-06] MEDS: SODIUM CHLORIDE 0.9% 1000ML 1,000 ML IV SCH (18:40)
[2020-08-06] MEDS: DONEPEZIL HCL 5 MG TAB PO SCH (21:48)
[2020-08-06] MEDS: ASPIRIN 81 MG CHEW TAB PO SCH (21:48)
[2020-08-06] MEDS: CRESTOR 10MG PO SCH (21:48)
[2020-08-06] MEDS: MELATONIN 5 MG TABLET PO SCH (21:48)
[2020-08-07] VITALS (8 sets, daily range): BP systolic 122–141; BP diastolic 52–68
[2020-08-07] MEDS: INSULIN REGULAR, HUMAN 100 UNIT/1 ML 3ML VIAL SQ SCH ×4 (07:30→20:48)
[2020-08-07] MEDS: MEROPENEM 1GM 100 ML IV SCH ×2 (09:44→20:55)
[2020-08-07] MEDS: SODIUM CHLORIDE 0.9% 1000ML 1,000 ML IV SCH (09:44)
[2020-08-07] MEDS: GLIMEPIRIDE 2 MG TAB PO SCH (09:44)
[2020-08-07] MEDS: METFORMIN HCL 500 MG TAB PO SCH ×3 (09:44→20:48)
[2020-08-07] MEDS: MAGNESIUM OXIDE 400 MG TAB PO SCH (09:44)
[2020-08-07] MEDS: HYDROCODONE/APAP 5MG-325MG TAB PO PRN ×3 (09:45→20:55)
[2020-08-07] MEDS: AMLODIPINE BESYLATE 5 MG TAB PO SCH (09:46)
[2020-08-07] MEDS: CRESTOR 10MG PO SCH (20:55)
[2020-08-07] MEDS: ASPIRIN 81 MG CHEW TAB PO SCH (20:55)
[2020-08-07] MEDS: MELATONIN 5 MG TABLET PO SCH (20:55)
[2020-08-07] MEDS: DONEPEZIL HCL 5 MG TAB PO SCH (20:55)
[2020-08-08] VITALS (8 sets, daily range): BP systolic 113–145; BP diastolic 35–71
[2020-08-08] MEDS: HYDROCODONE/APAP 5MG-325MG TAB PO PRN ×2 (02:55→13:05)
[2020-08-08 07:12] LABS: ALBUMIN 2.5 g/dL (3.5-5.0); CALCIUM 8.2 mg/dL (8.4-10.2); CREATININE, SERUM 0.98 mg/dL (0.57-1.11); MAGNESIUM 1.7 MG/DL (1.3-2.1)
[2020-08-08 07:25] LABS: PHOSPHORUS 2.5 MG/DL (2.3-4.7)
[2020-08-08] MEDS: INSULIN REGULAR, HUMAN 100 UNIT/1 ML 3ML VIAL SQ SCH ×4 (07:30→20:45)
[2020-08-08] MEDS: METFORMIN HCL 500 MG TAB PO SCH ×3 (08:57→16:39)
[2020-08-08] MEDS: ONDANSETRON HCL 4 MG ORAL DISINTEGRATING TAB PO PRN ×4 (08:57→23:31)
[2020-08-08] MEDS: MULTIVITAMINS/MINERALS TAB PO SCH (08:57)
[2020-08-08] MEDS: AMLODIPINE BESYLATE 5 MG TAB PO SCH (08:57)
[2020-08-08] MEDS: GLIMEPIRIDE 2 MG TAB PO SCH (08:57)
[2020-08-08] MEDS: MAGNESIUM OXIDE 400 MG TAB PO SCH (08:57)
[2020-08-08] MEDS: MEROPENEM 1GM 100 ML IV SCH ×2 (08:57→20:45)
[2020-08-08] MEDS ORDERED: KETOROLAC TROMETHAMINE 30 MG/ML VIAL IV STA (13:26)
[2020-08-08] MEDS ORDERED: ACETAMINOPHEN 325 MG TAB PO PRN (13:30)
[2020-08-08] MEDS ORDERED: SODIUM CHLORIDE 1 GM TAB PO ONE (13:45)
[2020-08-08] MEDS: SODIUM CHLORIDE 1 GM TAB PO SCH (16:39)
[2020-08-08] MEDS: CRESTOR 10MG PO SCH (20:45)
[2020-08-08] MEDS: DONEPEZIL HCL 5 MG TAB PO SCH (20:45)
[2020-08-08] MEDS: MELATONIN 5 MG TABLET PO SCH (20:45)
[2020-08-08] MEDS: ASPIRIN 81 MG CHEW TAB PO SCH (20:45)
[2020-08-09] VITALS (8 sets, daily range): BP systolic 96–143; BP diastolic 55–76
[2020-08-09 06:59] LABS: CALCIUM 8.4 mg/dL (8.4-10.2)
[2020-08-09] MEDS: GLIMEPIRIDE 2 MG TAB PO SCH (07:30)
[2020-08-09] MEDS: INSULIN REGULAR, HUMAN 100 UNIT/1 ML 3ML VIAL SQ SCH ×5 (07:30→20:55)
[2020-08-09] MEDS: METFORMIN HCL 500 MG TAB PO SCH ×3 (08:00→16:19)
[2020-08-09] MEDS: ONDANSETRON HCL 4 MG ORAL DISINTEGRATING TAB PO PRN ×2 (08:52→21:00)
[2020-08-09] MEDS: MAGNESIUM OXIDE 400 MG TAB PO SCH (09:00)
[2020-08-09] MEDS: MULTIVITAMINS/MINERALS TAB PO SCH (09:00)
[2020-08-09] MEDS: AMLODIPINE BESYLATE 5 MG TAB PO SCH (09:00)
[2020-08-09] MEDS: SODIUM CHLORIDE 1 GM TAB PO SCH ×2 (09:00→16:19)
[2020-08-09] MEDS: MEROPENEM 1GM 100 ML IV SCH (09:15)
[2020-08-09 10:47] LABS: CLARITY,URINE CLEAR (CLEAR); COLOR,URINE YELLOW (YELLOW); LEUKOCYTE ESTERASE ,URINE NEGATIVE (NEGATIVE); NITRITE,URINE NEGATIVE (NEGATIVE); PROTEIN,URINE DIPSTICK 1+ (NEGATIVE)
[2020-08-09 10:48] LABS: KETONES,URINE NEGATIVE (NEGATIVE); URINE UROBILINOGEN 0.2 mg/dL (0.2 - 1)
[2020-08-09 11:28] LABS: BACTERIA,URINE FEW /HPF; EPITHELIAL CELLS,URINE FEW /LPF; RBC,URINE 0-5 /HPF (0-5); WBC,URINE (MAN) 0-5 /HPF (0-5)
[2020-08-09 11:29] LABS: MUCUS,URINE FEW (RARE); YEAST,URINE FEW
[2020-08-09 11:30] LABS: CALCIUM OXALATE CRYSTALS,UR FEW (FEW)
[2020-08-09] MEDS ORDERED: SODIUM CHLORIDE1 GM PO (14:31)
[2020-08-09] MEDS ORDERED: ASPIRIN81 MG PO (14:31)
[2020-08-09] MEDS ORDERED: FUROSEMIDE INJ 10 MG/ML 4 ML VIAL IV ONE (14:45)
[2020-08-09] MEDS: CRESTOR 10MG PO SCH (21:23)
[2020-08-09] MEDS: MELATONIN 5 MG TABLET PO SCH (21:23)
[2020-08-09] MEDS: DONEPEZIL HCL 5 MG TAB PO SCH (21:23)
[2020-08-09] MEDS: ASPIRIN 81 MG CHEW TAB PO SCH (21:23)
[2020-08-10 00:10] VITALS: BP 116/61
[2020-08-10 04:00] VITALS: BP 134/62
[2020-08-10 06:42] LABS: ANION GAP 11.7 mmol/L (8-16); BLOOD UREA NITROGEN 17 mg/dL (7-26); BUN/CREATININE RATIO 27 (6-25); CALCIUM 9.3 mg/dL (8.4-10.2); CARBON DIOXIDE 26 mmol/L (22-29); CHLORIDE 93 mmol/L (98-107); CREATININE, SERUM 0.64 mg/dL (0.57-1.11); EST GLOMERULAR FILTRATION RATE > 60 ML/MIN (60-); GLUCOSE 83 mg/dL (74-118); POTASSIUM 4.7 mmol/L (3.5-5.1); SODIUM 126 mmol/L (136-145)
[2020-08-10 07:11] LABS: ALBUMIN 2.6 g/dL (3.5-5.0); BILIRUBIN,DIRECT 0.2 mg/dL (0.0-0.5)
[2020-08-10] MEDS: INSULIN REGULAR, HUMAN 100 UNIT/1 ML 3ML VIAL SQ SCH ×2 (07:30→11:30)
[2020-08-10 08:28] VITALS: BP 110/63
[2020-08-10 08:55] VITALS: BP 110/63
[2020-08-10] MEDS: METFORMIN HCL 500 MG TAB PO SCH ×2 (09:14→12:55)
[2020-08-10] MEDS: SODIUM CHLORIDE 1 GM TAB PO SCH (09:14)
[2020-08-10] MEDS: MAGNESIUM OXIDE 400 MG TAB PO SCH (09:14)
[2020-08-10] MEDS: AMLODIPINE BESYLATE 5 MG TAB PO SCH (09:14)
[2020-08-10] MEDS: MULTIVITAMINS/MINERALS TAB PO SCH (09:14)
[2020-08-10] MEDS: GLIMEPIRIDE 2 MG TAB PO SCH (09:14)
[2020-08-10] MEDS ORDERED: ZOFRAN4 MG PO (11:50)
[2020-08-10] MEDS ORDERED: ULTRACET TABLE1 EACH PO (11:52)
[2020-08-10] MEDS ORDERED: FUROSEMIDE INJ 10 MG/ML 4 ML VIAL IV ONE (12:00)
[2020-08-10 12:07] VITALS: BP 115/59
== END 2020-08-10 13:35 | disposition home or self-care (01) | DRG 872 ==
LOC: ER 17:08 → ERHOLD 08-03 00:46 → MED/SURG2 08-03 08:39
PROVIDERS: ADMIT Internal Medicine; ATTEND Internal Medicine
DX: A41.51 Sepsis due to Escherichia coli [E. coli] (principal); E87.1 Hypo-osmolality and hyponatremia; N17.9 Acute kidney failure, unspecified; E87.2 Acidosis; N10 Acute pyelonephritis; Z16.12 Extended spectrum beta lactamase (ESBL) resistance; B96.20 Unspecified Escherichia coli [E. coli] as the cause of diseases classified elsewhere; E78.5 Hyperlipidemia, unspecified; Z88.8 Allergy status to other drugs, medicaments and biological substances; Z91.040 Latex allergy status; E66.9 Obesity, unspecified; Z68.29 Body mass index [BMI] 29.0-29.9, adult; Z90.49 Acquired absence of other specified parts of digestive tract; F03.90 Unspecified dementia, unspecified severity, without behavioral disturbance, psychotic disturbance, mood disturbance, and anxiety; M25.571 Pain in right ankle and joints of right foot; D64.9 Anemia, unspecified; N18.30 Chronic kidney disease, stage 3 unspecified; Z91.81 History of falling; R53.81 Other malaise; R65.20 Severe sepsis without septic shock; E88.09 Other disorders of plasma-protein metabolism, not elsewhere classified; I12.9 Hypertensive chronic kidney disease with stage 1 through stage 4 chronic kidney disease, or unspecified chronic kidney disease; D69.6 Thrombocytopenia, unspecified; E86.0 Dehydration; W19.XXXA Unspecified fall, initial encounter; Y92.230 Patient room in hospital as the place of occurrence of the external cause
CPT/HCPCS: 36415; 70450; 71045; 72125; 74177; 80048; 80053; 80076; 81001; 82550; 82553; 82948; 83605; 83690; 83735; 84100; 84484; 85025; 87040; 87086; 87186; 97139; 99284; J0696; J1817; J1885; J1940; J2405; J3475; J7030; J7050; Q0162; Q9967; U0002

== ENCOUNTER 2021-01-10 09:19 | Inpatient (IN) | payer MEDICARE, OTHER ==
[~2021-01-10] VITALS: Ht 144.8 cm; Wt 61.2 kg
[~2021-01-10 09:19] MED LIST changes: +SODIUM CHLORIDE1 GM PO; +ULTRACET TABLE1 EACH PO; +ZOFRAN4 MG PO
[2021-01-10] MEDS ORDERED: SODIUM CHLORIDE 0.9% 1000ML 1,000 ML IV STA (10:26)
[2021-01-10] MEDS ORDERED: CEFEPIME 2 GM/NS 0.9% 100 ML 100 ML IV SCH (10:30)
[2021-01-10 11:07] LABS: BASOPHILS % 0.1 % (0.0-1.0); EOSINOPHILS # (AUTO) 0.1 (0.0-0.4); EOSINOPHILS % 0.9 % (0.0-6.0); HEMATOCRIT 29.4 % (34.2-44.1); HEMOGLOBIN 9.8 g/dL (12.0-16.0); LYMPHOCYTES % 14.9 % (18.0-39.1); MEAN CORPUSCULAR HEMOGLOBIN 29.2 pg (28-32); MEAN CORPUSCULAR HGB CONC 33.3 g/dL (31-35); MEAN CORPUSCULAR VOLUME 87.5 fL (81-99); MONOCYTES # (AUTO) 0.7 (0.2-0.8); MONOCYTES % 10.1 % (4.4-11.3); NEUTROPHILS % 73.6 % (38.7-80.0); PLATELET COUNT 141 x10e3/uL (140-360); RED BLOOD COUNT 3.36 x10e6/uL (3.6-5.1); RED CELL DISTRIBUTION WIDTH 13.8 % (11.7-14.4)
[2021-01-10 11:28] LABS: INR 0.86; PARTIAL THROMBOPLASTIN TIME 23.8 seconds (23.8-35.5); PROTHROMBIN TIME 12.3 seconds (11.9-14.5)
[2021-01-10 11:31] LABS: ALBUMIN 3.4 g/dL (3.5-5.0); ALBUMIN/GLOBULIN RATIO 1.2 (0.8-2.0); ANION GAP 18.1 mmol/L (8-16); CALCIUM 10.3 mg/dL (8.4-10.2); CREATININE, SERUM 1.11 mg/dL (0.57-1.11); POTASSIUM 4.1 mmol/L (3.5-5.1)
[2021-01-10 11:32] LABS: MAGNESIUM 0.9 MG/DL (1.3-2.1)
[2021-01-10 11:40] LABS: CREATINE KINASE MB 0.7 ng/mL (0-5.0)
[2021-01-10] MEDS ORDERED: MAGNESIUM SULFATE 2GM/50ML 50 ML IV ONE (13:15)
[2021-01-10] MEDS ORDERED: MAGNESIUM SULF 1GRAM/DEXTROSE 100 ML IV ONE (13:15)
[2021-01-10 13:45] LABS: CLARITY,URINE SL CLOUDY (CLEAR); COLOR,URINE STRAW (YELLOW)
[2021-01-10 13:46] LABS: KETONES,URINE NEGATIVE (NEGATIVE); LEUKOCYTE ESTERASE ,URINE LARGE (NEGATIVE); NITRITE,URINE NEGATIVE (NEGATIVE); PROTEIN,URINE DIPSTICK NEGATIVE (NEGATIVE); URINE UROBILINOGEN 0.2 mg/dL (0.2 - 1)
[2021-01-10 14:00] LABS: WBC,URINE (MAN) >50 /HPF (0-5)
[2021-01-10 14:01] LABS: BACTERIA,URINE MODERATE /HPF; RBC,URINE 0-5 /HPF (0-5)
[2021-01-10 14:02] LABS: EPITHELIAL CELLS,URINE RARE /LPF
[2021-01-10] MEDS ORDERED: ONDANSETRON HCL INJ 2MG/ML 2ML 2 MG/ML VIAL IV PRN (15:15)
[2021-01-10] MEDS ORDERED: MEROPENEM IV SCH (15:30)
[2021-01-10] MEDS ORDERED: [UNRECOGNIZED DRUG - OTHER] IV SCH (15:30)
[2021-01-10] MEDS: FAMOTIDINE 20 MG/2 ML VIAL IV SCH ×2 (15:40→20:43)
[2021-01-10] MEDS: SODIUM CHLORIDE 0.9% 1000ML 1,000 ML IV SCH (17:20)
[2021-01-10 17:30] VITALS: BP 104/54
[2021-01-10 18:20] VITALS: BP 104/54
[2021-01-10 20:00] VITALS: BP 104/58
[2021-01-10] MEDS ORDERED: ALENDRONAT70 MG/75 M PO (20:16)
[2021-01-10] MEDS ORDERED: METOCLOPRAM5 MG/5 ML PO (20:17)
[2021-01-10] MEDS ORDERED: LORATADINE10 MG PO (20:18)
[2021-01-10] MEDS ORDERED: OMEPRAZOLE40 MG PO (20:19)
[2021-01-10] MEDS ORDERED: SODIUM CHLORIDE1 GM PO (20:28)
[2021-01-10] MEDS ORDERED: CENTRUM ADULTS1 EACH PO (20:52)
[2021-01-10 20:57] VITALS: BP 104/58
[2021-01-10] MEDS: MEROPENEM 1GM 100 ML IV SCH (20:59)
[2021-01-11] VITALS (8 sets, daily range): BP systolic 98–136; BP diastolic 50–62
[2021-01-11 00:11] LABS: CREATINE KINASE MB 0.5 ng/mL (0-5.0)
[2021-01-11] MEDS: SODIUM CHLORIDE 0.9% 1000ML 1,000 ML IV SCH ×4 (00:40→20:37)
[2021-01-11 05:58] LABS: BASOPHILS % 0.4 % (0.0-1.0); EOSINOPHILS # (AUTO) 0.1 (0.0-0.4); EOSINOPHILS % 1.8 % (0.0-6.0); HEMATOCRIT 28.3 % (34.2-44.1); HEMOGLOBIN 9.3 g/dL (12.0-16.0); LYMPHOCYTES # (AUTO) 0.9 (1.0-3.2); LYMPHOCYTES % 16.6 % (18.0-39.1); MEAN CORPUSCULAR HEMOGLOBIN 29.1 pg (28-32); MEAN CORPUSCULAR HGB CONC 32.9 g/dL (31-35); MEAN CORPUSCULAR VOLUME 88.4 fL (81-99); MONOCYTES # (AUTO) 0.8 (0.2-0.8); MONOCYTES % 14.6 % (4.4-11.3); NEUTROPHILS # (AUTO) 3.7 (2.1-6.9); NEUTROPHILS % 66.1 % (38.7-80.0); PLATELET COUNT 113 x10e3/uL (140-360); RED CELL DISTRIBUTION WIDTH 14.2 % (11.7-14.4)
[2021-01-11 06:24] LABS: ALANINE AMINOTRANSFERASE 15 IU/L (0-55); ALBUMIN 2.7 g/dL (3.5-5.0); ALBUMIN/GLOBULIN RATIO 1.1 (0.8-2.0); ALKALINE PHOSPHATASE 51 IU/L (40-150); ANION GAP 12.2 mmol/L (8-16); BLOOD UREA NITROGEN 13 mg/dL (7-26); BUN/CREATININE RATIO 15 (6-25); CALCIUM 9.1 mg/dL (8.4-10.2); CARBON DIOXIDE 23 mmol/L (22-29); CHLORIDE 102 mmol/L (98-107); CHOL/HDL RATIO 2.3 (3.0-3.6); CHOLESTEROL 95 MD/DL (0-199); CREATININE, SERUM 0.86 mg/dL (0.57-1.11); EST GLOMERULAR FILTRATION RATE > 60 ML/MIN (60-); GLUCOSE 103 mg/dL (74-118); HDL CHOLESTEROL 41 MG/DL (40-60); LDL CHOLESTEROL 40 MG/DL (60-130); POTASSIUM 3.2 mmol/L (3.5-5.1); SODIUM 134 mmol/L (136-145); TRIGLYCERIDES 68 MG/DL (0-149)
[2021-01-11 06:46] LABS: CREATINE KINASE MB 0.4 ng/mL (0-5.0)
[2021-01-11] MEDS ORDERED: POTASSIUM CHLORIDE 10MEQ EA PO ONE (08:00)
[2021-01-11] MEDS: FAMOTIDINE 20 MG/2 ML VIAL IV SCH ×2 (08:27→20:38)
[2021-01-11] MEDS: MEROPENEM 1GM 100 ML IV SCH ×2 (08:27→20:37)
[2021-01-11 17:28] LABS: CREATINE KINASE MB 0.5 ng/mL (0-5.0)
[2021-01-11] MEDS ORDERED: DEXTROSE 50% SYRINGE 50 ML IV PRN (18:45)
[2021-01-11] MEDS: ENOXAPARIN SOD INJ 40 MG/0.4 ML SYR SC SCH (20:37)
[2021-01-11] MEDS ORDERED: INSULIN LISPRO 100 UNIT/1 ML 3ML VIAL SQ SCH (21:00)
[2021-01-12] VITALS (8 sets, daily range): BP systolic 101–140; BP diastolic 43–82
[2021-01-12] MEDS: SODIUM CHLORIDE 0.9% 1000ML 1,000 ML IV SCH (01:14)
[2021-01-12] MEDS: FAMOTIDINE 20 MG/2 ML VIAL IV SCH ×2 (08:27→20:20)
[2021-01-12] MEDS: MEROPENEM 1GM 100 ML IV SCH ×2 (08:27→20:17)
[2021-01-12] MEDS: ENOXAPARIN SOD INJ 40 MG/0.4 ML SYR SC SCH (08:32)
[2021-01-12] MEDS: ACETAMINOPHEN 325 MG TAB PO PRN (09:03)
[2021-01-12 09:29] LABS: BASOPHILS % 0.7 % (0.0-1.0); EOSINOPHILS # (AUTO) 0.1 (0.0-0.4); EOSINOPHILS % 1.8 % (0.0-6.0); HEMATOCRIT 27.6 % (34.2-44.1); HEMOGLOBIN 9.1 g/dL (12.0-16.0); LYMPHOCYTES # (AUTO) 0.9 (1.0-3.2); LYMPHOCYTES % 20.4 % (18.0-39.1); MEAN CORPUSCULAR HEMOGLOBIN 29.5 pg (28-32); MEAN CORPUSCULAR VOLUME 89.6 fL (81-99); MONOCYTES # (AUTO) 0.7 (0.2-0.8); MONOCYTES % 15.7 % (4.4-11.3); NEUTROPHILS # (AUTO) 2.7 (2.1-6.9); NEUTROPHILS % 60.7 % (38.7-80.0); PLATELET COUNT 101 x10e3/uL (140-360); RED BLOOD COUNT 3.08 x10e6/uL (3.6-5.1); RED CELL DISTRIBUTION WIDTH 14.5 % (11.7-14.4)
[2021-01-12 09:45] LABS: ANION GAP 11.3 mmol/L (8-16); BLOOD UREA NITROGEN 10 mg/dL (7-26); BUN/CREATININE RATIO 12 (6-25); CALCIUM 8.6 mg/dL (8.4-10.2); CARBON DIOXIDE 22 mmol/L (22-29); CHLORIDE 109 mmol/L (98-107); CREATININE, SERUM 0.84 mg/dL (0.57-1.11); EST GLOMERULAR FILTRATION RATE > 60 ML/MIN (60-); GLUCOSE 163 mg/dL (74-118); POTASSIUM 3.3 mmol/L (3.5-5.1); SODIUM 139 mmol/L (136-145)
[2021-01-12] MEDS: ASPIRIN 81 MG CHEW TAB PO SCH (20:20)
[2021-01-12] MEDS: CRESTOR 10MG PO SCH (20:20)
[2021-01-13] VITALS (8 sets, daily range): BP systolic 92–148; BP diastolic 47–68
[2021-01-13 08:06] LABS: ANION GAP 10.3 mmol/L (8-16); BLOOD UREA NITROGEN 10 mg/dL (7-26); BUN/CREATININE RATIO 12 (6-25); CALCIUM 8.4 mg/dL (8.4-10.2); CARBON DIOXIDE 22 mmol/L (22-29); CHLORIDE 110 mmol/L (98-107); CREATININE, SERUM 0.84 mg/dL (0.57-1.11); EST GLOMERULAR FILTRATION RATE > 60 ML/MIN (60-); GLUCOSE 113 mg/dL (74-118); POTASSIUM 3.3 mmol/L (3.5-5.1); SODIUM 139 mmol/L (136-145)
[2021-01-13] MEDS ORDERED: SIMVASTATIN 40 MG TAB PO SCH (09:00)
[2021-01-13] MEDS ORDERED: MAGNESIUM OXIDE 400 MG TAB PO SCH (09:00)
[2021-01-13] MEDS: MEROPENEM 1GM 100 ML IV SCH ×2 (09:19→16:34)
[2021-01-13] MEDS: FAMOTIDINE 20 MG/2 ML VIAL IV SCH ×2 (09:19→20:51)
[2021-01-13] MEDS: GLIMEPIRIDE 2 MG TAB PO SCH (09:19)
[2021-01-13] MEDS: LORATADINE 10 MG TAB PO SCH (09:20)
[2021-01-13] MEDS: MAGNESIUM OXIDE 400 MG TAB PO SCH (09:20)
[2021-01-13] MEDS: POTASSIUM CHLORIDE 20 MEQ TAB CR PO SCH (09:20)
[2021-01-13] MEDS: PANTOPRAZOLE SOD 40 MG TABEC PO SCH (09:21)
[2021-01-13] MEDS: MULTIVITAMINS/MINERALS TAB PO SCH (09:21)
[2021-01-13] MEDS: ENOXAPARIN SOD INJ 40 MG/0.4 ML SYR SC SCH (09:24)
[2021-01-13] MEDS: DONEPEZIL HCL 5 MG TAB PO SCH (09:24)
[2021-01-13] MEDS ORDERED: MAGNESIUM OXIDE 400 MG TAB PO ONE (14:15)
[2021-01-13] MEDS: DOCUSATE SODIUM 100 MG CAP PO SCH (16:34)
[2021-01-13] MEDS ORDERED: ONDANSETRON HCL 4 MG ORAL DISINTEGRATING TAB PO PRN (17:45)
[2021-01-13] MEDS: CRESTOR 10MG PO SCH (20:51)
[2021-01-13] MEDS: ASPIRIN 81 MG CHEW TAB PO SCH (20:51)
[2021-01-14] VITALS (8 sets, daily range): BP systolic 123–151; BP diastolic 51–63
[2021-01-14 07:02] LABS: % IRON SATURATION 16 % (15-50); IRON 35 ug/dL (50-170); TOTAL IRON BINDING CAPACITY 217 ug/dL (261-478); TRANSFERRIN 155 mg/dL (180-382)
[2021-01-14] MEDS: DONEPEZIL HCL 5 MG TAB PO SCH (08:44)
[2021-01-14] MEDS: DOCUSATE SODIUM 100 MG CAP PO SCH ×2 (08:44→17:20)
[2021-01-14] MEDS: MEROPENEM 1GM 100 ML IV SCH ×2 (08:44→21:25)
[2021-01-14] MEDS: FAMOTIDINE 20 MG/2 ML VIAL IV SCH ×2 (08:44→21:25)
[2021-01-14] MEDS: GLIMEPIRIDE 2 MG TAB PO SCH (08:44)
[2021-01-14] MEDS: LORATADINE 10 MG TAB PO SCH (08:44)
[2021-01-14] MEDS: PANTOPRAZOLE SOD 40 MG TABEC PO SCH (08:45)
[2021-01-14] MEDS: MULTIVITAMINS/MINERALS TAB PO SCH (08:45)
[2021-01-14] MEDS: MAGNESIUM OXIDE 400 MG TAB PO SCH (08:45)
[2021-01-14] MEDS: POTASSIUM CHLORIDE 20 MEQ TAB CR PO SCH (08:45)
[2021-01-14] MEDS: CRESTOR 10MG PO SCH (21:25)
[2021-01-14] MEDS: ASPIRIN 81 MG CHEW TAB PO SCH (21:25)
[2021-01-15] VITALS (8 sets, daily range): BP systolic 125–148; BP diastolic 53–64
[2021-01-15] MEDS: MEROPENEM 1GM 100 ML IV SCH ×2 (09:24→22:21)
[2021-01-15] MEDS: LORATADINE 10 MG TAB PO SCH (09:28)
[2021-01-15] MEDS: DOCUSATE SODIUM 100 MG CAP PO SCH ×2 (09:28→16:52)
[2021-01-15] MEDS: PANTOPRAZOLE SOD 40 MG TABEC PO SCH (09:28)
[2021-01-15] MEDS: MULTIVITAMINS/MINERALS TAB PO SCH (09:28)
[2021-01-15] MEDS: GLIMEPIRIDE 2 MG TAB PO SCH (09:28)
[2021-01-15] MEDS: POTASSIUM CHLORIDE 20 MEQ TAB CR PO SCH (09:28)
[2021-01-15] MEDS: FAMOTIDINE 20 MG/2 ML VIAL IV SCH ×2 (09:28→22:21)
[2021-01-15] MEDS: MAGNESIUM OXIDE 400 MG TAB PO SCH (09:28)
[2021-01-15] MEDS: DONEPEZIL HCL 5 MG TAB PO SCH (09:28)
[2021-01-15] MEDS ORDERED: IRON SUCROSE 100 MG in SODIUM CHLORIDE 0.9% 100 ML 100 ML IV ONE (10:00)
[2021-01-15] MEDS: ACETAMINOPHEN 325 MG TAB PO PRN (10:27)
[2021-01-15] MEDS: CRESTOR 10MG PO SCH (22:22)
[2021-01-15] MEDS: ASPIRIN 81 MG CHEW TAB PO SCH (22:22)
[2021-01-16] VITALS (8 sets, daily range): BP systolic 114–132; BP diastolic 56–87
[2021-01-16] MEDS: DONEPEZIL HCL 5 MG TAB PO SCH (09:31)
[2021-01-16] MEDS: DOCUSATE SODIUM 100 MG CAP PO SCH ×2 (09:31→16:54)
[2021-01-16] MEDS: MEROPENEM 1GM 100 ML IV SCH ×2 (09:31→21:14)
[2021-01-16] MEDS: LORATADINE 10 MG TAB PO SCH (09:31)
[2021-01-16] MEDS: MULTIVITAMINS/MINERALS TAB PO SCH (09:31)
[2021-01-16] MEDS: GLIMEPIRIDE 2 MG TAB PO SCH (09:31)
[2021-01-16] MEDS: PANTOPRAZOLE SOD 40 MG TABEC PO SCH (09:31)
[2021-01-16] MEDS: POTASSIUM CHLORIDE 20 MEQ TAB CR PO SCH (09:31)
[2021-01-16] MEDS: ENOXAPARIN SOD INJ 40 MG/0.4 ML SYR SC SCH (09:31)
[2021-01-16] MEDS: FAMOTIDINE 20 MG/2 ML VIAL IV SCH ×2 (09:31→21:14)
[2021-01-16] MEDS: MAGNESIUM OXIDE 400 MG TAB PO SCH (09:31)
[2021-01-16] MEDS: ACETAMINOPHEN 325 MG TAB PO PRN (10:04)
[2021-01-16] MEDS: CRESTOR 10MG PO SCH (21:14)
[2021-01-16] MEDS: ASPIRIN 81 MG CHEW TAB PO SCH (21:14)
[2021-01-17] VITALS: BP 132/72
[2021-01-17 04:00] VITALS: BP 96/43
[2021-01-17 07:55] VITALS: BP 126/59
[2021-01-17] MEDS: FAMOTIDINE 20 MG/2 ML VIAL IV SCH (09:12)
[2021-01-17] MEDS: MEROPENEM 1GM 100 ML IV SCH (09:12)
[2021-01-17] MEDS: MULTIVITAMINS/MINERALS TAB PO SCH (09:15)
[2021-01-17] MEDS: PANTOPRAZOLE SOD 40 MG TABEC PO SCH (09:15)
[2021-01-17] MEDS: MAGNESIUM OXIDE 400 MG TAB PO SCH (09:15)
[2021-01-17] MEDS: POTASSIUM CHLORIDE 20 MEQ TAB CR PO SCH (09:15)
[2021-01-17] MEDS: DONEPEZIL HCL 5 MG TAB PO SCH (09:16)
[2021-01-17] MEDS: DOCUSATE SODIUM 100 MG CAP PO SCH (09:16)
[2021-01-17] MEDS: LORATADINE 10 MG TAB PO SCH (09:16)
[2021-01-17] MEDS: GLIMEPIRIDE 2 MG TAB PO SCH (09:16)
[2021-01-17] MEDS: ENOXAPARIN SOD INJ 40 MG/0.4 ML SYR SC SCH (09:16)
[2021-01-17 09:18] VITALS: BP 126/59
[2021-01-17 12:35] VITALS: BP 104/74
[2021-01-17] MEDS ORDERED: FAMOTIDINE 20 MG TAB PO SCH (21:00)
== END 2021-01-17 14:00 | disposition home health service (06) | DRG 871 ==
LOC: ER 10:26 → ERHOLD 10:30 → MED/SURG3 16:30
PROVIDERS: ADMIT Internal Medicine; ATTEND Internal Medicine
PROC: 02HV33Z Insertion of Infusion Device into Superior Vena Cava, Percutaneous Approach (ICD-10-PCS; principal; 2021-01-14)
DX: A41.9 Sepsis, unspecified organism (principal); G92 Toxic encephalopathy; N39.0 Urinary tract infection, site not specified; E87.1 Hypo-osmolality and hyponatremia; Z16.12 Extended spectrum beta lactamase (ESBL) resistance; Z20.822 Contact with and (suspected) exposure to COVID-19; E87.8 Other disorders of electrolyte and fluid balance, not elsewhere classified; E83.42 Hypomagnesemia; Z88.8 Allergy status to other drugs, medicaments and biological substances; Z91.040 Latex allergy status; E66.9 Obesity, unspecified; N28.9 Disorder of kidney and ureter, unspecified; I10 Essential (primary) hypertension; E11.9 Type 2 diabetes mellitus without complications; C50.919 Malignant neoplasm of unspecified site of unspecified female breast; D64.9 Anemia, unspecified; B96.20 Unspecified Escherichia coli [E. coli] as the cause of diseases classified elsewhere; T36.8X5A Adverse effect of other systemic antibiotics, initial encounter; E61.1 Iron deficiency; Z85.3 Personal history of malignant neoplasm of breast; D69.6 Thrombocytopenia, unspecified; Z85.72 Personal history of non-Hodgkin lymphomas; Z68.29 Body mass index [BMI] 29.0-29.9, adult
CPT/HCPCS: 36415; 36569; 70450; 71045; 72125; 80048; 80053; 80061; 81001; 82550; 82553; 82607; 82728; 82746; 82948; 83540; 83605; 83735; 83880; 84466; 84484; 85025; 85610; 85730; 86022; 87040; 87086; 87186; 93005; 96360; 97139; 99251; 99284; J1650; J1756; J2185; J3475; J7030; U0002

== ENCOUNTER 2021-04-10 14:51 | Inpatient (IN) | payer MEDICARE, OTHER ==
[~2021-04-10] VITALS: Ht 144.8 cm; Wt 62.6 kg
[~2021-04-10 14:51] MED LIST changes: +ALENDRONAT70 MG/75 M PO; +CENTRUM ADULTS1 EACH PO; +ROPIVACAINE 0.5% 5 MG/ML 30 ML SDV ONE
[2021-04-10] MEDS ORDERED: MORPHINE SULFATE INJ 2 MG/ML SYR IV STA (17:22)
[2021-04-10] MEDS ORDERED: ONDANSETRON HCL INJ 2MG/ML 2ML 2 MG/ML VIAL IV STA (17:22)
[2021-04-10 17:43] LABS: BASOPHILS % 0.3 % (0.0-1.0); EOSINOPHILS % 0.3 % (0.0-6.0); HEMATOCRIT 27.2 % (34.2-44.1); HEMOGLOBIN 8.8 g/dL (12.0-16.0); LYMPHOCYTES # (AUTO) 1.1 (1.0-3.2); LYMPHOCYTES % 10.8 % (18.0-39.1); MEAN CORPUSCULAR HEMOGLOBIN 29.5 pg (28-32); MEAN CORPUSCULAR HGB CONC 32.4 g/dL (31-35); MEAN CORPUSCULAR VOLUME 91.3 fL (81-99); MONOCYTES # (AUTO) 0.8 (0.2-0.8); MONOCYTES % 7.4 % (4.4-11.3); NEUTROPHILS # (AUTO) 8.5 (2.1-6.9); NEUTROPHILS % 80.6 % (38.7-80.0); PLATELET COUNT 140 x10e3/uL (140-360); RED BLOOD COUNT 2.98 x10e6/uL (3.6-5.1); RED CELL DISTRIBUTION WIDTH 13.9 % (11.7-14.4)
[2021-04-10 17:56] LABS: INR 0.94; PROTHROMBIN TIME 12.8 seconds (11.9-14.5)
[2021-04-10 18:06] LABS: ALBUMIN 3.2 g/dL (3.5-5.0); ALBUMIN/GLOBULIN RATIO 1.2 (0.8-2.0); ANION GAP 15.9 mmol/L (8-16); CALCIUM 12.4 mg/dL (8.4-10.2); CREATININE, SERUM 1.3 mg/dL (0.57-1.11); POTASSIUM 4.9 mmol/L (3.5-5.1)
[2021-04-10] MEDS ORDERED: SODIUM CHLORIDE 0.9% 1000ML 1,000 ML IV SCH (19:30)
[2021-04-10] MEDS ORDERED: ONDANSETRON HCL INJ 2MG/ML 2ML 2 MG/ML VIAL IV PRN (19:30)
[2021-04-10] MEDS ORDERED: DEXTROSE 50% SYRINGE 50 ML IV PRN (19:30)
[2021-04-10] MEDS ORDERED: MORPHINE SULFATE INJ 2 MG/ML SYR ONE (19:40)
[2021-04-10] MEDS: MORPHINE SULFATE INJ 4 MG/ML INJ 1ML IV PRN (19:40)
[2021-04-10] MEDS ORDERED: INSULIN REGULAR, HUMAN 100 UNIT/1 ML SQ SCH (21:00)
[2021-04-11] MEDS: SODIUM CHLORIDE 0.9% 1000ML 1,000 ML IV SCH ×2 (03:45→14:14)
[2021-04-11] MEDS: PANTOPRAZOLE SOD 40 MG TABEC PO SCH (07:30)
[2021-04-11] MEDS: MORPHINE SULFATE INJ 4 MG/ML INJ 1ML IV PRN (08:15)
[2021-04-11 08:36] LABS: BASOPHILS % 0.5 % (0.0-1.0); EOSINOPHILS # (AUTO) 0.1 (0.0-0.4); HEMATOCRIT 24.4 % (34.2-44.1); HEMOGLOBIN 7.9 g/dL (12.0-16.0); LYMPHOCYTES % 15.6 % (18.0-39.1); MEAN CORPUSCULAR HEMOGLOBIN 29.4 pg (28-32); MEAN CORPUSCULAR HGB CONC 32.4 g/dL (31-35); MEAN CORPUSCULAR VOLUME 90.7 fL (81-99); MONOCYTES # (AUTO) 0.6 (0.2-0.8); MONOCYTES % 10.1 % (4.4-11.3); NEUTROPHILS # (AUTO) 4.5 (2.1-6.9); NEUTROPHILS % 71.2 % (38.7-80.0); PLATELET COUNT 105 x10e3/uL (140-360); RED BLOOD COUNT 2.69 x10e6/uL (3.6-5.1); RED CELL DISTRIBUTION WIDTH 13.9 % (11.7-14.4)
[2021-04-11 08:47] LABS: ALBUMIN 3.1 g/dL (3.5-5.0); ALBUMIN/GLOBULIN RATIO 1.3 (0.8-2.0); ANION GAP 10.5 mmol/L (8-16); CALCIUM 12.8 mg/dL (8.4-10.2); CREATININE, SERUM 1.14 mg/dL (0.57-1.11); POTASSIUM 4.5 mmol/L (3.5-5.1)
[2021-04-11] MEDS: LORATADINE 10 MG TAB PO SCH (09:00)
[2021-04-11] MEDS ORDERED: SIMVASTATIN 40 MG TAB PO SCH (09:00)
[2021-04-11] MEDS: MULTIVITAMINS/MINERALS TAB PO SCH (09:00)
[2021-04-11] MEDS: DONEPEZIL HCL 5 MG TAB PO SCH (09:00)
[2021-04-11] MEDS: METOCLOPRAMIDE HCL 10MG/10ML UDC PO SCH (09:00)
[2021-04-11] MEDS: SODIUM CHLORIDE 1 GM TAB PO SCH ×2 (09:00→16:25)
[2021-04-11] MEDS ORDERED: ACETAMINOPHEN 1000 MG/100 ML 100 ML IV ONE (10:26)
[2021-04-11] MEDS ORDERED: BUPIVACAINE HCL 0.5% 10ML MPF VIAL INJ ONE (11:49)
[2021-04-11] MEDS ORDERED: ONDANSETRON HCL INJ 2MG/ML 2ML 2 MG/ML VIAL IV PRN (12:15)
[2021-04-11] MEDS ORDERED: DIPHENHYDRAMINE HCL INJ 50 MG/ML VIAL IV PRN (12:15)
[2021-04-11] MEDS ORDERED: DOCUSATE SODIUM 100 MG CAP PO PRN (12:15)
[2021-04-11] MEDS ORDERED: FENTANYL CITRATE/PF 100MCG/2 ML INJ ONE (13:12)
[2021-04-11] MEDS ORDERED: SEVOFLURANE INHAL SOLN 250 ML PEN BTL ONE (13:27)
[2021-04-11] MEDS ORDERED: KETOROLAC TROMETHAMINE 30 MG/ML VIAL ONE (13:27)
[2021-04-11] MEDS ORDERED: POVIDONE IODINE 0.05% 0.05 % ML PO ONE (13:27)
[2021-04-11] MEDS ORDERED: PROPOFOL IV EMULSION 10 MG/ML 20 ML VIAL ONE (13:27)
[2021-04-11] MEDS ORDERED: EPHEDRINE SULFATE INJ 50 MG/ML VIAL ONE (13:27)
[2021-04-11] MEDS ORDERED: LIDOCAINE HCL 2% LOCAL INJ 5 ML SDV VIAL INJ ONE (13:27)
[2021-04-11] MEDS ORDERED: ONDANSETRON HCL INJ 2MG/ML 2ML 2 MG/ML VIAL ONE (13:27)
[2021-04-11 13:37] VITALS: BP 100/55
[2021-04-11] MEDS ORDERED: METHENAMINE HIPP1 GM PO (14:20)
[2021-04-11 14:24] VITALS: BP 90/41
[2021-04-11] MEDS: HEPARIN SOD (PORCINE) 5,000 UNIT/ML VIAL SC SCH (16:25)
[2021-04-11] MEDS: CELECOXIB 200 MG CAP PO SCH (16:25)
[2021-04-11 16:52] VITALS: BP 99/46
[2021-04-11] MEDS: Cefazolin 1 GM in SODIUM CHLORIDE 0.9% 50ML 50 ML IV SCH (19:05)
[2021-04-11 20:00] VITALS: BP 106/50
[2021-04-11 20:02] VITALS: BP 99/46
[2021-04-11] MEDS: ASPIRIN 81 MG CHEW TAB PO SCH (21:55)
[2021-04-11] MEDS: CRESTOR 10MG PO SCH (21:56)
[2021-04-12] VITALS (8 sets, daily range): BP systolic 109–146; BP diastolic 36–99
[2021-04-12] MEDS: SODIUM CHLORIDE 0.9% 1000ML 1,000 ML IV SCH ×2 (04:13→17:56)
[2021-04-12] MEDS: Cefazolin 1 GM in SODIUM CHLORIDE 0.9% 50ML 50 ML IV SCH ×2 (04:13→12:48)
[2021-04-12] MEDS: HEPARIN SOD (PORCINE) 5,000 UNIT/ML VIAL SC SCH ×2 (04:32→17:23)
[2021-04-12] MEDS: HYDROCODONE/APAP 5MG-325MG TAB PO PRN ×2 (04:35→23:57)
[2021-04-12 04:56] LABS: HEMATOCRIT 20.1 % (34.2-44.1); HEMOGLOBIN 6.4 g/dL (12.0-16.0)
[2021-04-12] MEDS ORDERED: SODIUM CHLORIDE 0.9% 250ML 250 ML IV ONE (05:15)
[2021-04-12] MEDS ORDERED: FUROSEMIDE INJ 10 MG/ML 2 ML VIAL IV ONE ×2 (05:15→20:30)
[2021-04-12 06:40] LABS: ANION GAP 13.5 mmol/L (8-16); CREATININE, SERUM 1.47 mg/dL (0.57-1.11); POTASSIUM 4.5 mmol/L (3.5-5.1)
[2021-04-12] MEDS: MAGNESIUM OXIDE PO SCH (09:00)
[2021-04-12] MEDS: PANTOPRAZOLE SOD 40 MG TABEC PO SCH (09:27)
[2021-04-12] MEDS: DONEPEZIL HCL 5 MG TAB PO SCH (09:28)
[2021-04-12] MEDS: LORATADINE 10 MG TAB PO SCH (09:28)
[2021-04-12] MEDS: CELECOXIB 200 MG CAP PO SCH ×2 (09:28→17:10)
[2021-04-12] MEDS: SODIUM CHLORIDE 1 GM TAB PO SCH ×2 (09:29→17:10)
[2021-04-12] MEDS: MULTIVITAMINS/MINERALS TAB PO SCH (09:29)
[2021-04-12] MEDS: METOCLOPRAMIDE HCL 10MG/10ML UDC PO SCH (09:34)
[2021-04-12] MEDS: LOSARTAN POTASSIUM 100 MG TAB PO SCH (10:10)
[2021-04-12] MEDS ORDERED: ACETAMINOPHEN 1000 MG/100 ML IV PRN (12:15)
[2021-04-12] MEDS ORDERED: SODIUM CHLORIDE 0.9% 50ML 50 ML ONE (12:57)
[2021-04-12] MEDS: GLIMEPIRIDE 2 MG TAB PO SCH (17:18)
[2021-04-12] MEDS ORDERED: SODIUM CHLORIDE 0.9% 250ML 250 ML ONE ×2 (18:08→23:17)
[2021-04-12] MEDS ORDERED: PAMIDRONATE DISODIUM 54 MG in SODIUM CHLORIDE 0.9% 500ML 300 ML IV ONE (19:30)
[2021-04-12] MEDS ORDERED: FUROSEMIDE INJ 10 MG/ML 4 ML VIAL ONE (21:05)
[2021-04-12] MEDS: CRESTOR 10MG PO SCH (21:39)
[2021-04-12] MEDS: ASPIRIN 81 MG CHEW TAB PO SCH (21:39)
[2021-04-13] VITALS: BP 110/43
[2021-04-13 04:00] VITALS: BP 109/47
[2021-04-13 05:10] LABS: HEMATOCRIT 28.3 % (34.2-44.1); HEMOGLOBIN 9.1 g/dL (12.0-16.0)
[2021-04-13] MEDS: HEPARIN SOD (PORCINE) 5,000 UNIT/ML VIAL SC SCH ×2 (06:26→16:53)
[2021-04-13 07:20] VITALS: BP 117/42
[2021-04-13] MEDS: CELECOXIB 200 MG CAP PO SCH ×2 (07:46→16:31)
[2021-04-13] MEDS: SODIUM CHLORIDE 0.9% 1000ML 1,000 ML IV SCH (07:46)
[2021-04-13] MEDS: DONEPEZIL HCL 5 MG TAB PO SCH (07:46)
[2021-04-13] MEDS: METOCLOPRAMIDE HCL 10MG/10ML UDC PO SCH (07:46)
[2021-04-13] MEDS: MAGNESIUM OXIDE PO SCH (07:46)
[2021-04-13] MEDS: GLIMEPIRIDE 2 MG TAB PO SCH ×2 (07:46→16:31)
[2021-04-13] MEDS: SODIUM CHLORIDE 1 GM TAB PO SCH ×2 (07:46→16:31)
[2021-04-13] MEDS: LOSARTAN POTASSIUM 100 MG TAB PO SCH (07:46)
[2021-04-13] MEDS: PANTOPRAZOLE SOD 40 MG TABEC PO SCH (07:46)
[2021-04-13] MEDS: MULTIVITAMINS/MINERALS TAB PO SCH (07:46)
[2021-04-13] MEDS: LORATADINE 10 MG TAB PO SCH (07:46)
[2021-04-13 08:29] VITALS: BP 117/42
[2021-04-13 11:03] VITALS: BP 124/42
[2021-04-13 14:56] LABS: ANION GAP 11.9 mmol/L (8-16); CALCIUM 10.7 mg/dL (8.4-10.2); CREATININE, SERUM 1.24 mg/dL (0.57-1.11); POTASSIUM 3.9 mmol/L (3.5-5.1)
[2021-04-13 15:14] VITALS: BP 102/65
[2021-04-13] MEDS ORDERED: FUROSEMIDE 20 MG TAB PO SCH (17:00)
[2021-04-13] MEDS ORDERED: HEPARIN SOD (PORCINE) 5,000 UNIT/ML VIAL SC SCH (21:00)
== END 2021-04-13 17:36 | DRG 481 ==
LOC: ER 17:25 → ERHOLD 19:23 → MED/SURG 04-11 13:13
PROVIDERS: ADMIT Internal Medicine; ATTEND Internal Medicine
PROC: 0QSB04Z Reposition Right Lower Femur with Internal Fixation Device, Open Approach (ICD-10-PCS; principal; 2021-04-10)
PROC: 30233N1 Transfusion of Nonautologous Red Blood Cells into Peripheral Vein, Percutaneous Approach (ICD-10-PCS; 2021-04-12)
DX: M80.861A Other osteoporosis with current pathological fracture, right lower leg, initial encounter for fracture (principal); E87.1 Hypo-osmolality and hyponatremia; E83.52 Hypercalcemia; G30.9 Alzheimer's disease, unspecified; F02.80 Dementia in other diseases classified elsewhere, unspecified severity, without behavioral disturbance, psychotic disturbance, mood disturbance, and anxiety; D50.0 Iron deficiency anemia secondary to blood loss (chronic); Z85.72 Personal history of non-Hodgkin lymphomas; E78.5 Hyperlipidemia, unspecified; Z85.3 Personal history of malignant neoplasm of breast; K44.9 Diaphragmatic hernia without obstruction or gangrene; W19.XXXA Unspecified fall, initial encounter; D69.59 Other secondary thrombocytopenia; Z20.822 Contact with and (suspected) exposure to COVID-19
CPT/HCPCS: 36415; 70450; 71045; 72125; 76000; 80048; 80053; 82310; 82948; 83010; 83615; 83735; 83970; 84443; 85014; 85018; 85025; 85045; 85610; 86850; 86870; 86880; 86900; 86905; 86920; 86922; 93005; 97139; 99001; 99285; C1713; J0690; J1644; J1885; J1940; J2001; J2270; J2405; J2430; J2795; J3010; J7030; J7040; J7050; P9016; U0002

== ENCOUNTER 2021-08-01 17:53 | Inpatient (IN) | payer MEDICARE, OTHER ==
[~2021-08-01] VITALS: Ht 144.8 cm; Wt 61.7 kg
[~2021-08-01 17:53] MED LIST changes: +METHENAMINE HIPP1 GM PO; -ROPIVACAINE 0.5% 5 MG/ML 30 ML SDV ONE
[2021-08-01] MEDS ORDERED: ASPIRIN 81 MG CHEW TAB PO ONE (18:15)
[2021-08-01 18:49] LABS: BASOPHILS % 0.4 % (0.0-1.0); EOSINOPHILS # (AUTO) 0.1 (0.0-0.4); EOSINOPHILS % 0.8 % (0.0-6.0); HEMATOCRIT 34.6 % (34.2-44.1); HEMOGLOBIN 10.8 g/dL (12.0-16.0); LYMPHOCYTES # (AUTO) 1.9 (1.0-3.2); LYMPHOCYTES % 23.2 % (18.0-39.1); MEAN CORPUSCULAR HEMOGLOBIN 29.9 pg (28-32); MEAN CORPUSCULAR HGB CONC 31.2 g/dL (31-35); MEAN CORPUSCULAR VOLUME 95.8 fL (81-99); MONOCYTES # (AUTO) 0.9 (0.2-0.8); MONOCYTES % 10.5 % (4.4-11.3); NEUTROPHILS # (AUTO) 5.4 (2.1-6.9); NEUTROPHILS % 64.5 % (38.7-80.0); PLATELET COUNT 130 x10e3/uL (140-360); RED BLOOD COUNT 3.61 x10e6/uL (3.6-5.1); RED CELL DISTRIBUTION WIDTH 13.3 % (11.7-14.4)
[2021-08-01 18:53] LABS: CLARITY,URINE CLOUDY (CLEAR); COLOR,URINE YELLOW (YELLOW); KETONES,URINE NEGATIVE (NEGATIVE); LEUKOCYTE ESTERASE ,URINE LARGE (NEGATIVE); NITRITE,URINE NEGATIVE (NEGATIVE); PROTEIN,URINE DIPSTICK 1+ (NEGATIVE)
[2021-08-01 18:54] LABS: URINE UROBILINOGEN 0.2 mg/dL (0.2 - 1)
[2021-08-01 19:00] LABS: BACTERIA,URINE MODERATE /HPF; WBC,URINE (MAN) >50 /HPF (0-5)
[2021-08-01 19:08] LABS: ALANINE AMINOTRANSFERASE 7 IU/L (0-55); ALBUMIN/GLOBULIN RATIO 1.2 (0.8-2.0); ALKALINE PHOSPHATASE 69 IU/L (40-150); ANION GAP 14.5 mmol/L (8-16); BLOOD UREA NITROGEN 26 mg/dL (7-26); BUN/CREATININE RATIO 23 (6-25); CARBON DIOXIDE 25 mmol/L (22-29); CHLORIDE 99 mmol/L (98-107); CREATINE KINASE 11 IU/L (29-168); CREATININE, SERUM 1.12 mg/dL (0.57-1.11); EST GLOMERULAR FILTRATION RATE 46 ML/MIN (60-); GLUCOSE 148 mg/dL (74-118); POTASSIUM 4.5 mmol/L (3.5-5.1); SODIUM 134 mmol/L (136-145)
[2021-08-01 19:09] LABS: CALCIUM 13.1 mg/dL (8.4-10.2)
[2021-08-01] MEDS ORDERED: SODIUM CHLORIDE 0.9% 1000ML 1,000 ML IV STA (19:38)
[2021-08-01] MEDS ORDERED: ONDANSETRON HCL INJ 2MG/ML 2ML 2 MG/ML VIAL IV PRN (19:45)
[2021-08-01 20:50] VITALS: BP 129/53
[2021-08-01] MEDS: SODIUM CHLORIDE 0.9% 1000ML 1,000 ML IV SCH (21:01)
[2021-08-01] MEDS ORDERED: SLOW-MAG64 MG PO (21:11)
[2021-08-01 21:43] VITALS: BP 129/53
[2021-08-01 21:45] VITALS: BP 129/53
[2021-08-02] VITALS (10 sets, daily range): BP systolic 94–128; BP diastolic 39–60
[2021-08-02] MEDS ORDERED: CEFTRIAXONE 1 GM in SODIUM CHLORIDE 0.9% 50ML 50 ML IV ONE (03:30)
[2021-08-02] MEDS: SODIUM CHLORIDE 0.9% 1000ML 1,000 ML IV SCH ×3 (03:46→21:48)
[2021-08-02] MEDS ORDERED: HYDRALAZINE HCL 20 MG/ML VIAL IV PRN (08:15)
[2021-08-02 08:40] LABS: BASOPHILS % 0.5 % (0.0-1.0); EOSINOPHILS # (AUTO) 0.1 (0.0-0.4); EOSINOPHILS % 1.7 % (0.0-6.0); HEMATOCRIT 29.6 % (34.2-44.1); HEMOGLOBIN 9.2 g/dL (12.0-16.0); LYMPHOCYTES # (AUTO) 1.5 (1.0-3.2); LYMPHOCYTES % 23.8 % (18.0-39.1); MEAN CORPUSCULAR HEMOGLOBIN 29.8 pg (28-32); MEAN CORPUSCULAR HGB CONC 31.1 g/dL (31-35); MEAN CORPUSCULAR VOLUME 95.8 fL (81-99); MONOCYTES # (AUTO) 0.7 (0.2-0.8); MONOCYTES % 10.6 % (4.4-11.3); NEUTROPHILS % 62.9 % (38.7-80.0); PLATELET COUNT 105 x10e3/uL (140-360); RED BLOOD COUNT 3.09 x10e6/uL (3.6-5.1); RED CELL DISTRIBUTION WIDTH 13.5 % (11.7-14.4)
[2021-08-02] MEDS: GLIMEPIRIDE 2 MG TAB PO SCH ×2 (09:00→16:30)
[2021-08-02 09:01] LABS: ANION GAP 12.1 mmol/L (8-16); CALCIUM 11.6 mg/dL (8.4-10.2); CREATININE, SERUM 0.92 mg/dL (0.57-1.11); POTASSIUM 4.1 mmol/L (3.5-5.1)
[2021-08-02] MEDS ORDERED: PAMIDRONATE DISODIUM 90 MG in SODIUM CHLORIDE 0.9% 1000ML 1,000 ML IV ONE (11:00)
[2021-08-02] MEDS: DONEPEZIL HCL 5 MG TAB PO SCH (20:32)
[2021-08-02] MEDS ORDERED: DEXTROSE 50% SYRINGE 50 ML IV ONE (22:36)
[2021-08-03] VITALS (9 sets, daily range): BP systolic 83–124; BP diastolic 38–54
[2021-08-03] MEDS ORDERED: DEXTROSE 50% SYRINGE 50 ML IV ONE ×2 (07:55→08:45)
[2021-08-03] MEDS ORDERED: DEXTROSE 50% SYRINGE 50 ML IV PRN ×3 (08:00→12:00)
[2021-08-03] MEDS: SODIUM CHLORIDE 0.9% 1000ML 1,000 ML IV SCH ×2 (10:06→19:56)
[2021-08-03] MEDS ORDERED: ONDANSETRON HCL 4 MG ORAL DISINTEGRATING TAB PO PRN (19:45)
[2021-08-03] MEDS ORDERED: HYDROCODONE/APAP 5MG-325MG TAB PO PRN (19:45)
[2021-08-03] MEDS: DONEPEZIL HCL 5 MG TAB PO SCH (20:05)
[2021-08-03] MEDS: CEFTRIAXONE 1 GM in SODIUM CHLORIDE 0.9% 50ML 50 ML IV SCH (22:34)
[2021-08-04] VITALS (10 sets, daily range): BP systolic 85–125; BP diastolic 26–55
[2021-08-04] MEDS: SODIUM CHLORIDE 0.9% 1000ML 1,000 ML IV SCH ×3 (05:15→18:18)
[2021-08-04 06:23] LABS: BASOPHILS % 0.5 % (0.0-1.0); EOSINOPHILS # (AUTO) 0.2 (0.0-0.4); EOSINOPHILS % 3.1 % (0.0-6.0); HEMATOCRIT 28.7 % (34.2-44.1); LYMPHOCYTES # (AUTO) 1.4 (1.0-3.2); LYMPHOCYTES % 23.4 % (18.0-39.1); MEAN CORPUSCULAR HEMOGLOBIN 29.6 pg (28-32); MEAN CORPUSCULAR HGB CONC 31.4 g/dL (31-35); MEAN CORPUSCULAR VOLUME 94.4 fL (81-99); MONOCYTES # (AUTO) 0.8 (0.2-0.8); MONOCYTES % 12.8 % (4.4-11.3); NEUTROPHILS # (AUTO) 3.5 (2.1-6.9); NEUTROPHILS % 59.3 % (38.7-80.0); PLATELET COUNT 106 x10e3/uL (140-360); RED BLOOD COUNT 3.04 x10e6/uL (3.6-5.1); RED CELL DISTRIBUTION WIDTH 13.7 % (11.7-14.4)
[2021-08-04 06:55] LABS: ALBUMIN 2.1 g/dL (3.5-5.0); ALBUMIN/GLOBULIN RATIO 1.1 (0.8-2.0); ANION GAP 9.6 mmol/L (8-16); CALCIUM 9.5 mg/dL (8.4-10.2); CREATININE, SERUM 0.75 mg/dL (0.57-1.11); POTASSIUM 3.6 mmol/L (3.5-5.1)
[2021-08-04] MEDS: CEFTRIAXONE 1 GM in SODIUM CHLORIDE 0.9% 50ML 50 ML IV SCH (09:00)
[2021-08-04] MEDS: MEROPENEM 500 MG in SODIUM CHLORIDE 0.9% 50ML 50 ML IV SCH (13:33)
[2021-08-04] MEDS: DONEPEZIL HCL 5 MG TAB PO SCH (20:05)
[2021-08-04] MEDS ORDERED: CEFTRIAXONE 1 GM in SODIUM CHLORIDE 0.9% 50ML 50 ML IV SCH (22:00)
[2021-08-05] VITALS (8 sets, daily range): BP systolic 111–134; BP diastolic 40–53
[2021-08-05] MEDS: MEROPENEM 500 MG in SODIUM CHLORIDE 0.9% 50ML 50 ML IV SCH ×2 (00:35→13:52)
[2021-08-05] MEDS: SODIUM CHLORIDE 0.9% 1000ML 1,000 ML IV SCH ×3 (05:15→21:25)
[2021-08-05] MEDS ORDERED: BACTRIM DS TAB1 EACH PO (13:19)
[2021-08-05] MEDS ORDERED: MEROPENEM 500 MG VIAL ONE (14:01)
[2021-08-05] MEDS: DONEPEZIL HCL 5 MG TAB PO SCH (20:30)
[2021-08-06] VITALS (7 sets, daily range): BP systolic 123–137; BP diastolic 46–64
[2021-08-06] MEDS: MEROPENEM 500 MG in SODIUM CHLORIDE 0.9% 50ML 50 ML IV SCH ×2 (01:07→12:51)
[2021-08-06] MEDS: SODIUM CHLORIDE 0.9% 1000ML 1,000 ML IV SCH ×3 (06:07→20:44)
[2021-08-06] MEDS: DONEPEZIL HCL 5 MG TAB PO SCH (20:44)
[2021-08-07] VITALS (7 sets, daily range): BP systolic 121–151; BP diastolic 51–70
[2021-08-07] MEDS: MEROPENEM 500 MG in SODIUM CHLORIDE 0.9% 50ML 50 ML IV SCH ×2 (00:15→13:00)
[2021-08-07] MEDS: SODIUM CHLORIDE 0.9% 1000ML 1,000 ML IV SCH ×4 (01:42→19:59)
[2021-08-07] MEDS: DONEPEZIL HCL 5 MG TAB PO SCH (20:58)
[2021-08-07] MEDS: MELATONIN 3 MG TAB PO SCH (21:00)
[2021-08-08] VITALS (7 sets, daily range): BP systolic 94–149; BP diastolic 50–70
[2021-08-08] MEDS: MEROPENEM 500 MG in SODIUM CHLORIDE 0.9% 50ML 50 ML IV SCH ×2 (00:12→13:00)
[2021-08-08] MEDS: SODIUM CHLORIDE 0.9% 1000ML 1,000 ML IV SCH ×3 (05:03→21:15)
[2021-08-08 06:27] LABS: INR 0.95; PARTIAL THROMBOPLASTIN TIME 19.6 seconds (23.8-35.5); PROTHROMBIN TIME 13.4 seconds (11.9-14.5)
[2021-08-08 06:37] LABS: ALBUMIN 2.2 g/dL (3.5-5.0); BILIRUBIN,DIRECT 0.2 mg/dL (0.0-0.5)
[2021-08-08 16:17] LABS: BODY FLUID APPEARANCE CLOUDY; BODY FLUID COLOR STRAW
[2021-08-08 16:18] LABS: BODY FLUID TYPE PLEURAL
[2021-08-08 16:50] LABS: RBC,BODY FLUID 2000 cells/uL; WBC,BODY FLUID 1023 cells/uL
[2021-08-08 18:57] LABS: LYMPHOCYTES,BODY FLUID 70 %; MONO/MACROPHG,BODY FLUID 9 %; NEUTROPHILS,BODY FLUID 17 %; OTHER CELLS,BODY FLUID 4 %
[2021-08-08] MEDS: MELATONIN 3 MG TAB PO SCH (21:00)
[2021-08-08] MEDS: DONEPEZIL HCL 5 MG TAB PO SCH (21:18)
[2021-08-09] VITALS: BP 114/43
[2021-08-09] MEDS: MEROPENEM 500 MG in SODIUM CHLORIDE 0.9% 50ML 50 ML IV SCH ×2 (01:24→12:33)
[2021-08-09 04:00] VITALS: BP 104/42
[2021-08-09] MEDS: SODIUM CHLORIDE 0.9% 1000ML 1,000 ML IV SCH ×3 (05:43→21:30)
[2021-08-09 08:11] VITALS: BP 104/42
[2021-08-09 09:53] LABS: BASOPHILS % 0.5 % (0.0-1.0); EOSINOPHILS # (AUTO) 0.1 (0.0-0.4); EOSINOPHILS % 1.6 % (0.0-6.0); HEMATOCRIT 32.8 % (34.2-44.1); HEMOGLOBIN 9.6 g/dL (12.0-16.0); LYMPHOCYTES # (AUTO) 1.6 (1.0-3.2); LYMPHOCYTES % 28.4 % (18.0-39.1); MEAN CORPUSCULAR HGB CONC 29.3 g/dL (31-35); MEAN CORPUSCULAR VOLUME 99.1 fL (81-99); MONOCYTES # (AUTO) 0.5 (0.2-0.8); MONOCYTES % 8.6 % (4.4-11.3); NEUTROPHILS # (AUTO) 3.3 (2.1-6.9); NEUTROPHILS % 59.6 % (38.7-80.0); RED BLOOD COUNT 3.31 x10e6/uL (3.6-5.1); RED CELL DISTRIBUTION WIDTH 14.3 % (11.7-14.4)
[2021-08-09 10:02] LABS: PLATELET COUNT 91 x10e3/uL (140-360)
[2021-08-09 11:48] VITALS: BP 121/77
[2021-08-09 14:53] LABS: CALCIUM 7.5 mg/dL (8.4-10.2); CREATININE, SERUM 0.74 mg/dL (0.57-1.11)
[2021-08-09 20:00] VITALS: BP 108/49
[2021-08-09 21:00] VITALS: BP 108/49
[2021-08-09] MEDS: MELATONIN 3 MG TAB PO SCH (21:00)
[2021-08-09] MEDS: DONEPEZIL HCL 5 MG TAB PO SCH (21:30)
[2021-08-10] VITALS (9 sets, daily range): BP systolic 115–139; BP diastolic 44–68
[2021-08-10] MEDS: MEROPENEM 500 MG in SODIUM CHLORIDE 0.9% 50ML 50 ML IV SCH ×2 (01:39→13:51)
[2021-08-10] MEDS: SODIUM CHLORIDE 0.9% 1000ML 1,000 ML IV SCH ×2 (05:55→13:52)
[2021-08-10 10:20] LABS: ALBUMIN 2.1 g/dL (3.5-5.0); ANION GAP 12.4 mmol/L (8-16); CREATININE, SERUM 0.8 mg/dL (0.57-1.11); POTASSIUM 3.4 mmol/L (3.5-5.1)
[2021-08-10] MEDS ORDERED: POTASSIUM CHLORIDE 20 MEQ TAB CR PO SCH (21:00)
[2021-08-10] MEDS ORDERED: FUROSEMIDE 40 MG TAB PO ONE (21:00)
[2021-08-10] MEDS: MELATONIN 3 MG TAB PO SCH (21:00)
[2021-08-10] MEDS: DONEPEZIL HCL 5 MG TAB PO SCH (21:22)
[2021-08-11 00:21] VITALS: BP 140/77
[2021-08-11] MEDS: MEROPENEM 500 MG in SODIUM CHLORIDE 0.9% 50ML 50 ML IV SCH ×2 (01:42→14:21)
[2021-08-11 04:00] VITALS: BP 125/46
[2021-08-11 08:00] VITALS: BP 137/93
[2021-08-11] MEDS ORDERED: FUROSEMIDE INJ 10 MG/ML 4 ML VIAL IV ONE (08:45)
[2021-08-11 10:53] VITALS: BP 102/51
[2021-08-11 11:47] VITALS: BP 102/51
[2021-08-11 11:49] VITALS: BP 102/51
[2021-08-11] MEDS ORDERED: ALBUTEROL/IPRATROPIUM 3 ML NEB NEB ONE (12:00)
== END 2021-08-11 15:38 | disposition hospice, home (50) | DRG 640 ==
LOC: ER 18:04 → ERHOLD 20:07 → MED/SURG3 20:43
PROVIDERS: ADMIT Internal Medicine; ATTEND Internal Medicine
PROC: 0W993ZZ Drainage of Right Pleural Cavity, Percutaneous Approach (ICD-10-PCS; principal; 2021-08-08)
DX: E83.52 Hypercalcemia (principal); G93.41 Metabolic encephalopathy; J69.0 Pneumonitis due to inhalation of food and vomit; C85.92 Non-Hodgkin lymphoma, unspecified, intrathoracic lymph nodes; N17.9 Acute kidney failure, unspecified; Z16.12 Extended spectrum beta lactamase (ESBL) resistance; E44.1 Mild protein-calorie malnutrition; J90 Pleural effusion, not elsewhere classified; Z85.3 Personal history of malignant neoplasm of breast; B96.20 Unspecified Escherichia coli [E. coli] as the cause of diseases classified elsewhere; E11.9 Type 2 diabetes mellitus without complications; Z68.29 Body mass index [BMI] 29.0-29.9, adult; F03.90 Unspecified dementia, unspecified severity, without behavioral disturbance, psychotic disturbance, mood disturbance, and anxiety; N30.90 Cystitis, unspecified without hematuria; E77.8 Other disorders of glycoprotein metabolism
CPT/HCPCS: 32555; 36415; 71045; 71250; 74230; 74470; 80048; 80053; 80076; 81001; 82310; 82550; 82553; 82945; 82948; 83615; 83735; 84157; 84484; 85025; 85610; 85730; 87070; 87086; 87186; 87205; 88112; 88305; 89051; 93005; 94799; 99251; 99284; J0360; J0696; J1940; J2185; J2430; J7030; J7799; U0002